=== PATIENT | female | born 1965 | race Caucasian/White ===

== ENCOUNTER → 2016-05-14 | Outpatient (CLI) | payer MEDICARE | LOC: M PT 09:49 | PROVIDERS: ATTEND Nurse Practitioner Family | DX: M40.204 Unspecified kyphosis, thoracic region (principal) | CPT/HCPCS: 97162; G8978; G8979; G8980 ==

== ENCOUNTER → 2017-06-03 | Outpatient (REF) | payer MEDICARE, MEDICAID, OTHER ==
[2017-06-03 18:58] LABS: HEMATOCRIT 44.4 % (36.0-47.0); HEMOGLOBIN 14.9 g/dl (12.0-16.0); MEAN CORPUSCULAR HEMOGLOBIN 30.9 pg (27.0-33.0); MEAN CORPUSCULAR HGB CONC 33.6 g/dl (32.0-36.5); MEAN CORPUSCULAR VOLUME 92.1 fl (80.0-96.0); PLATELET COUNT, AUTOMATED 355 10^3/uL (150-450); RED BLOOD COUNT 4.82 10^6/uL (4.00-5.40); RED CELL DISTRIBUTION WIDTH 13.2 % (11.5-14.5); WHITE BLOOD COUNT 10.3 10^3/uL (4.0-10.0)
[2017-06-03 19:20] LABS: TOTAL 25(OH) VITAMIN D 25.9 NG/ML (30.0-100.0); VITAMIN B12 LEVEL 411 PG/ML
[2017-06-03 19:25] LABS: FOLATE 9.3 NG/ML
[2017-06-03 19:40] LABS: ERYTHROCYTE SEDIMENTATION RATE 6 mm/hr (0-30)
[2017-06-03 20:12] LABS: ALBUMIN 4.3 GM/DL (3.2-5.2); ALBUMIN/GLOBULIN RATIO 1.16 (1.00-1.93); ALKALINE PHOSPHATASE 81 U/L (45-117); ALT/SGPT 14 U/L (12-78); ANION GAP 6 MEQ/L (8-16); AST/SGOT 13 U/L (7-37); BILIRUBIN,TOTAL 0.3 MG/DL (0.2-1.0); BLOOD UREA NITROGEN 16 MG/DL (7-18); C REACTIVE PROTEIN QUANTITATIV < 0.30 MG/DL (0.00-0.30); CALCIUM LEVEL 10.2 MG/DL (8.5-10.1); CARBON DIOXIDE LEVEL 30 MEQ/L (21-32); CHLORIDE LEVEL 104 MEQ/L (98-107); CREATININE FOR GFR 0.68 MG/DL (0.55-1.02); FREE T4 1.05 NG/DL (0.76-1.46); GLOMERULAR FILTRATION RATE > 60.0 (>51); GLUCOSE, FASTING 107 MG/DL (70-100); POTASSIUM SERUM 4.2 MEQ/L (3.5-5.1); SODIUM LEVEL 140 MEQ/L (136-145)
== END ==
LOC: M SFHCPLAZ 14:25
DX: G43.709 Chronic migraine without aura, not intractable, without status migrainosus (principal); M54.9 Dorsalgia, unspecified; R26.81 Unsteadiness on feet; Z79.899 Other long term (current) drug therapy
CPT/HCPCS: 82746

== ENCOUNTER 2017-09-05 20:51 | Emergency (ER) | payer MEDICARE, MEDICAID, OTHER ==
[2017-09-05] MEDS: NS 1,000 ML IV (22:15)
[2017-09-05 22:25] LABS: HEMATOCRIT 43.8 % (36.0-47.0); HEMOGLOBIN 14.7 g/dl (12.0-15.5); MEAN CORPUSCULAR HEMOGLOBIN 30.9 pg (27.0-33.0); MEAN CORPUSCULAR HGB CONC 33.6 g/dl (32.0-36.5); MEAN CORPUSCULAR VOLUME 92.2 fl (80.0-96.0); PLATELET COUNT, AUTOMATED 294 10^3/uL (150-450); RED BLOOD COUNT 4.75 10^6/uL (4.00-5.40); RED CELL DISTRIBUTION WIDTH 13.9 % (11.5-14.5); WHITE BLOOD COUNT 11.5 10^3/uL (4.0-10.0)
[2017-09-05 22:32] LABS: ANION GAP 5 MEQ/L (8-16); BLOOD UREA NITROGEN 20 MG/DL (7-18); CALCIUM LEVEL 9.3 MG/DL (8.5-10.1); CARBON DIOXIDE LEVEL 29 MEQ/L (21-32); CHLORIDE LEVEL 106 MEQ/L (98-107); CREATININE FOR GFR 0.83 MG/DL (0.55-1.30); GLOMERULAR FILTRATION RATE > 60.0 (>51); GLUCOSE, FASTING 116 MG/DL (70-100); POTASSIUM SERUM 4.1 MEQ/L (3.5-5.1); SODIUM LEVEL 140 MEQ/L (136-145)
[2017-09-05] MEDS: diphenhydrAMINE INJ 50MG/ML VIAL (J1200) IV (22:37)
[2017-09-05] MEDS: KETOROLAC 30 MG/ML VIAL (J1885) IV (22:37)
[2017-09-05] MEDS: METOCLOPRAMIDE INJ 10MG/2ML VIAL (J2765) IV (22:37)
[2017-09-05] MEDS: dexameTHASONE 20 MG/5 ML VIAL (J1100) IV (23:30)
== END 2017-09-06 00:01 | disposition home or self-care (01) ==
LOC: M ED 09-06 00:01
DX: R51 Headache (principal); Z87.891 Personal history of nicotine dependence; Z91.040 Latex allergy status; Z88.0 Allergy status to penicillin
CPT/HCPCS: J1200

== ENCOUNTER 2017-11-11 00:51 | Emergency (ER) | payer MEDICARE, MEDICAID, OTHER ==
[2017-11-11 02:02] LABS: BASO % 0.4 % (0.0-1.0); EOS # 0.2 10^3/uL (0.0-0.50); EOS % 2.2 % (0.0-3.0); HEMATOCRIT 37.6 % (36.0-47.0); HEMOGLOBIN 12.6 g/dl (12.0-15.5); IMMATURE GRANULOCYTE % 0.3 % (0-3.0); LYMPH # 2.3 10^3/uL (1.5-4.5); LYMPH % 25.5 % (24.0-44.0); MEAN CORPUSCULAR HEMOGLOBIN 31.7 pg (27.0-33.0); MEAN CORPUSCULAR HGB CONC 33.5 g/dl (32.0-36.5); MEAN CORPUSCULAR VOLUME 94.5 fl (80.0-96.0); MONO # 0.9 10^3/uL (0.0-0.8); MONO % 10.2 % (0.0-5.0); NEUTROPHILS # 5.5 10^3/uL (1.8-7.7); NEUTROPHILS % 61.4 % (36.0-66.0); PLATELET COUNT, AUTOMATED 286 10^3/uL (150-450); RED BLOOD COUNT 3.98 10^6/uL (4.00-5.40); RED CELL DISTRIBUTION WIDTH 13.2 % (11.5-14.5)
[2017-11-11 02:31] LABS: ALBUMIN 3.5 GM/DL (3.2-5.2); ALBUMIN/GLOBULIN RATIO 1.13 (1.00-1.93); ALKALINE PHOSPHATASE 68 U/L (45-117); ALT/SGPT 14 U/L (12-78); ANION GAP 7 MEQ/L (8-16); AST/SGOT 12 U/L (7-37); BILIRUBIN,DIRECT < 0.1 MG/DL (0.0-0.2); BILIRUBIN,TOTAL 0.1 MG/DL (0.2-1.0); BLOOD UREA NITROGEN 18 MG/DL (7-18); CALCIUM LEVEL 8.8 MG/DL (8.5-10.1); CARBON DIOXIDE LEVEL 29 MEQ/L (21-32); CHLORIDE LEVEL 106 MEQ/L (98-107); CPK CREATINE PHOSPHOKINASE 40 U/L (26-192); CREATININE FOR GFR 0.76 MG/DL (0.55-1.30); FREE T4 0.85 NG/DL (0.76-1.46); GLOMERULAR FILTRATION RATE > 60.0 (>51); GLUCOSE, FASTING 96 MG/DL (70-100); SODIUM LEVEL 142 MEQ/L (136-145); TOTAL PROTEIN 6.6 GM/DL (6.4-8.2); TROPONIN I < 0.02 NG/ML (< 0.10)
[2017-11-11] MEDS ORDERED: NS 1,000 ML IV (02:36)
[2017-11-11 02:37] LABS: CK-MB VALUE MASS < 1.0 NG/ML (<3.6); NT-PRO BNP 142 PG/ML (<125)
== END 2017-11-11 04:08 | disposition home or self-care (01) ==
LOC: M ED 00:51
DX: R60.0 Localized edema (principal); G35 Multiple sclerosis; M53.9 Dorsopathy, unspecified; Z88.0 Allergy status to penicillin; Z91.040 Latex allergy status
CPT/HCPCS: 71045

== ENCOUNTER → 2018-03-09 | Outpatient (CLI) | payer MEDICARE, MEDICAID | LOC: M RAD 09:28 | DX: M54.5 Low back pain (principal); M25.78 Osteophyte, vertebrae; S13.120A Subluxation of C1/C2 cervical vertebrae, initial encounter; X58.XXXA Exposure to other specified factors, initial encounter; Y92.89 Other specified places as the place of occurrence of the external cause | CPT/HCPCS: 72072 ==

== ENCOUNTER → 2018-04-06 | Outpatient (CLI) | payer MEDICARE, MEDICAID | LOC: M SLEEP 07:47 | DX: G43.009 Migraine without aura, not intractable, without status migrainosus (principal) | CPT/HCPCS: 95819 ==

== ENCOUNTER 2018-05-06 07:06 | Emergency (ER) | payer MEDICARE, MEDICAID ==
[~2018-05-06 07:06] MED LIST: CALC600T57 PO; PRED20TA PO; REGL10TA6 PO; VITA200028 PO
[2018-05-06] MEDS ORDERED: FAMO1TAB11 PO (07:18)
[2018-05-06] MEDS ORDERED: GABA-1171 PO (07:18)
[2018-05-06] MEDS ORDERED: SM I PO (07:18)
[2018-05-06] MEDS ORDERED: PROP10TA56 PO (07:18)
[2018-05-06] MEDS ORDERED: PROM12.528 PO (07:18)
[2018-05-06] MEDS ORDERED: NS 1,000 ML IV ONE ×3 (07:30→09:00)
[2018-05-06 07:37] LABS: BASO % 0.2 % (0.0-1.0); EOS % 0.2 % (0.0-3.0); HEMATOCRIT 42.3 % (36.0-47.0); HEMOGLOBIN 14.4 g/dl (12.0-15.5); LYMPH # 1.7 10^3/uL (1.5-4.5); LYMPH % 10.6 % (24.0-44.0); MEAN CORPUSCULAR VOLUME 91.2 fl (80.0-96.0); MONO % 6.3 % (0.0-5.0); NEUTROPHILS # 13.3 10^3/uL (1.8-7.7); NEUTROPHILS % 82.2 % (36.0-66.0); PLATELET COUNT, AUTOMATED 334 10^3/uL (150-450); RED BLOOD COUNT 4.64 10^6/uL (4.00-5.40); WHITE BLOOD COUNT 16.1 10^3/uL (4.0-10.0)
[2018-05-06] MEDS ORDERED: KETOROLAC 30 MG/ML VIAL (J1885) IV ONE (07:45)
[2018-05-06] MEDS ORDERED: PROMETHAZINE INJ 25 MG/ML VIAL (J2550) IV ONE (07:45)
[2018-05-06] MEDS ORDERED: LORazepam 2 MG/ML VIAL (J2060) IV STA (08:07)
[2018-05-06 09:02] LABS: ALBUMIN 3.9 GM/DL (3.2-5.2); ALT/SGPT 15 U/L (12-78); BILIRUBIN,DIRECT 0.1 MG/DL (0.0-0.2); BILIRUBIN,TOTAL 0.5 MG/DL (0.2-1.0); BLOOD UREA NITROGEN 14 MG/DL (7-18); CALCIUM LEVEL 9.3 MG/DL (8.5-10.1); CARBON DIOXIDE LEVEL 27 MEQ/L (21-32); CHLORIDE LEVEL 104 MEQ/L (98-107); CK-MB VALUE MASS < 1.0 NG/ML (<3.6); CPK CREATINE PHOSPHOKINASE 38 U/L (26-192); CREATININE FOR GFR 0.69 MG/DL (0.55-1.30); GLOMERULAR FILTRATION RATE > 60.0 (>51); GLUCOSE, FASTING 142 MG/DL (70-100); LIPASE 112 U/L (73-393); MB/CK RELATIVE INDEX 2.63 (< OR =4); POTASSIUM SERUM 3.5 MEQ/L (3.5-5.1); SODIUM LEVEL 140 MEQ/L (136-145); TOTAL PROTEIN 7.5 GM/DL (6.4-8.2); TROPONIN I < 0.02 NG/ML (< 0.10)
[2018-05-06 11:38] LABS: FREE THYROXINE INDEX 3.4 % (1.3-4.8); T UPTAKE 31 % (30-39); THYROXINE (T4) 10.9 UG/DL (4.5-12.0)
--- NOTE | 2018-05-06 13:17 | ECGEPIP ---
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
[2018-05-06 14:11] VITALS: BP 113/76
== END 2018-05-06 14:14 | disposition home or self-care (01) ==
LOC: EDBD 07:06 → M ED 07:06 → EDSEX 07:06 → M ED 14:14
DX: R11.2 Nausea with vomiting, unspecified (principal); G43.909 Migraine, unspecified, not intractable, without status migrainosus; G35 Multiple sclerosis; R53.1 Weakness; Z87.891 Personal history of nicotine dependence; Z88.0 Allergy status to penicillin; Z91.040 Latex allergy status; Z79.899 Other long term (current) drug therapy
CPT/HCPCS: 80048; 80076; 82550; 82553; 83690; 84436; 84443; 84479; 84484; 85025; 93005; 93041; 96361; 96374; 96375; 99285; J1885; J2060

== ENCOUNTER 2018-08-27 16:37 | Emergency (ER) | payer MEDICAID, MEDICARE ==
[~2018-08-27] VITALS: Ht 162.6 cm; Wt 63.6 kg
[~2018-08-27 16:37] MED LIST changes: +FAMO1TAB11 PO; +GABA-1171 PO; +IBUP200T51 PO; +PROM12.528 PO; +PROP10TA56 PO
[2018-08-27] MEDS ORDERED: PROP20TA72 PO (16:56)
[2018-08-27] MEDS ORDERED: PRIL20TA2 PO (17:37)
[2018-08-27] MEDS ORDERED: OMEPRAZOLE 20 MG CAP PO ONE (17:45)
[2018-08-27 18:12] VITALS: BP 115/71
== END 2018-08-27 19:23 | disposition home or self-care (01) ==
LOC: M ED 16:37
DX: K21.0 Gastro-esophageal reflux disease with esophagitis (principal); G43.909 Migraine, unspecified, not intractable, without status migrainosus; G35 Multiple sclerosis; Z79.899 Other long term (current) drug therapy; Z88.0 Allergy status to penicillin; Z91.040 Latex allergy status

== ENCOUNTER 2018-10-17 09:22 | Emergency (ER) | payer MEDICAID, MEDICARE ==
[~2018-10-17] VITALS: Ht 167.6 cm; Wt 65.9 kg
[~2018-10-17 09:22] MED LIST changes: +PRIL20TA2 PO; +PROP20TA72 PO
[2018-10-17 09:23] VITALS: BP 121/81
[2018-10-17] MEDS ORDERED: HM S0.65 NARES (09:33)
[2018-10-17] MEDS ORDERED: FLON27.5 NARES (10:07)
== END 2018-10-17 10:11 | disposition home or self-care (01) ==
LOC: M ED 09:22
DX: J30.2 Other seasonal allergic rhinitis (principal); Z88.0 Allergy status to penicillin; Z91.040 Latex allergy status

== ENCOUNTER 2019-01-15 01:02 | Emergency (ER) | payer MEDICARE, MEDICAID ==
[~2019-01-15] VITALS: Ht 165.1 cm; Wt 52.3 kg
[~2019-01-15 01:02] MED LIST changes: +FLON27.5 NARES; +HM S0.65 NARES; +IBUP-1729 PO; -IBUP200T51 PO
[2019-01-15] MEDS ORDERED: SUCR1SS PO (01:14)
[2019-01-15 01:58] LABS: BASO % 0.2 % (0.0-1.0); EOS % 0.2 % (0.0-3.0); HEMATOCRIT 40.5 % (36.0-47.0); HEMOGLOBIN 13.4 g/dl (12.0-15.5); LYMPH # 1.7 10^3/uL (1.5-5.0); LYMPH % 12.9 % (24.0-44.0); MEAN CORPUSCULAR HEMOGLOBIN 30.9 pg (27.0-33.0); MEAN CORPUSCULAR HGB CONC 33.1 g/dl (32.0-36.5); MEAN CORPUSCULAR VOLUME 93.5 fl (80.0-96.0); MONO % 7.1 % (0.0-5.0); NEUTROPHILS # 10.7 10^3/uL (1.5-8.5); NEUTROPHILS % 79.3 % (36.0-66.0); PLATELET COUNT, AUTOMATED 333 10^3/uL (150-450); RED BLOOD COUNT 4.33 10^6/uL (4.00-5.40); WHITE BLOOD COUNT 13.5 10^3/uL (4.0-10.0)
[2019-01-15 02:24] LABS: ALBUMIN 3.8 GM/DL (3.2-5.2); ALT/SGPT 15 U/L (12-78); BILIRUBIN,DIRECT < 0.1 MG/DL (0.0-0.2); BILIRUBIN,TOTAL 0.2 MG/DL (0.2-1.0); BLOOD UREA NITROGEN 23 MG/DL (7-18); CALCIUM LEVEL 9.8 MG/DL (8.5-10.1); CARBON DIOXIDE LEVEL 27 MEQ/L (21-32); CHLORIDE LEVEL 106 MEQ/L (98-107); CREATININE FOR GFR 0.69 MG/DL (0.55-1.30); GLOMERULAR FILTRATION RATE > 60.0 (>51); GLUCOSE, FASTING 129 MG/DL (70-100); LIPASE 131 U/L (73-393); POTASSIUM SERUM 3.9 MEQ/L (3.5-5.1); SODIUM LEVEL 141 MEQ/L (136-145); TOTAL PROTEIN 7.2 GM/DL (6.4-8.2)
[2019-01-15] MEDS ORDERED: LORazepam 2 MG TAB PO ONE (02:30)
[2019-01-15] MEDS ORDERED: NS 500 ML IV ONE (03:00)
[2019-01-15 04:33] VITALS: BP 125/75
== END 2019-01-15 04:33 | disposition home or self-care (01) ==
LOC: M ED 01:02
DX: G71.00 Muscular dystrophy, unspecified (principal); E86.0 Dehydration; K59.00 Constipation, unspecified; Z79.899 Other long term (current) drug therapy; Z88.0 Allergy status to penicillin; Z91.040 Latex allergy status

== ENCOUNTER 2019-01-22 08:08 | Emergency (ER) | payer MEDICARE, MEDICAID ==
[~2019-01-22 08:08] MED LIST changes: +SUCR1SS PO
[2019-01-22 08:09] VITALS: BP 112/64
[2019-01-22] MEDS ORDERED: IBUP-1022 (08:14)
[2019-01-22] MEDS ORDERED: BACLOFEN 10 MG TAB PO ONE (09:00)
[2019-01-22] MEDS ORDERED: BACL10TA2 PO (09:01)
== END 2019-01-22 09:10 | disposition home or self-care (01) ==
LOC: M ED 08:08
DX: G71.00 Muscular dystrophy, unspecified (principal); R25.1 Tremor, unspecified; K02.9 Dental caries, unspecified; F41.9 Anxiety disorder, unspecified; K21.9 Gastro-esophageal reflux disease without esophagitis; Z88.0 Allergy status to penicillin; Z91.040 Latex allergy status; Z79.899 Other long term (current) drug therapy

== ENCOUNTER 2019-04-19 18:27 | Emergency (ER) | payer MEDICARE, MEDICAID ==
[~2019-04-19] VITALS: Ht 162.6 cm; Wt 59.1 kg
[2019-04-19 18:27] VITALS: BP 138/80
[~2019-04-19 18:27] MED LIST changes: +BACL10TA2 PO; +IBUP-1022
[2019-04-19] MEDS ORDERED: COUGH (18:37)
== END 2019-04-19 20:40 | disposition left against medical advice (07) ==
LOC: M ED 18:27
DX: Z53.21 Procedure and treatment not carried out due to patient leaving prior to being seen by health care provider (principal)

== ENCOUNTER → 2019-10-21 | Outpatient (REF) | payer MEDICARE, MEDICAID ==
[~2019-10-21] MED LIST changes: +COUGH
[2019-10-21 17:03] LABS: APPEARANCE, URINE CLEAR (CLEAR); BACTERIA, URINE AUTO NEGATIVE (NEGATIVE); BILIRUBIN, URINE AUTO NEGATIVE (NEGATIVE); BLOOD, URINE BLOOD 1+ (NEGATIVE); COLOR, URINE STRAW (YELLOW); GLUCOSE, URINE (UA) AUTO NEGATIVE (NEGATIVE); KETONE, URINE AUTO NEGATIVE (NEGATIVE); LEUKOCYTE ESTERASE, URINE AUTO NEGATIVE (NEGATIVE); MUCUS, URINE SMALL (NEGATIVE); NITRITE, URINE AUTO NEGATIVE (NEGATIVE); PROTEIN, URINE AUTO NEGATIVE (NEGATIVE); RBC, URINE AUTO 0 /HPF (0-3); SPECIFIC GRAVITY URINE AUTO 1.006 (1.002-1.035); SQUAMOUS EPITHELIAL CELL UR AU 0 /HPF (0-6); UROBILINOGEN, URINE AUTO 0.2 mg/dL (0.0-2.0); WBC, URINE AUTO 1 /HPF (0-3)
== END ==
LOC: M LAB REF 16:31
PROVIDERS: ATTEND Physician Assistant
DX: N39.0 Urinary tract infection, site not specified (principal)

== ENCOUNTER 2020-09-11 11:42 | Emergency (ER) | payer MEDICARE, MEDICAID ==
[2020-09-11 12:22] LABS: BASO % 0.3 % (0.0-1.0); EOS % 0.2 % (0.0-3.0); HEMATOCRIT 41.4 % (36.0-47.0); HEMOGLOBIN 13.7 g/dl (12.0-15.5); LYMPH # 1.5 10^3/uL (1.5-5.0); LYMPH % 13.2 % (24.0-44.0); MEAN CORPUSCULAR HEMOGLOBIN 30.7 pg (27.0-33.0); MEAN CORPUSCULAR HGB CONC 33.1 g/dl (32.0-36.5); MEAN CORPUSCULAR VOLUME 92.8 fl (80.0-96.0); MONO # 0.9 10^3/uL (0.0-0.8); MONO % 8.2 % (2.0-8.0); NEUTROPHILS # 8.8 10^3/uL (1.5-8.5); NEUTROPHILS % 77.7 % (36.0-66.0); PLATELET COUNT, AUTOMATED 348 10^3/uL (150-450); RED BLOOD COUNT 4.46 10^6/uL (4.00-5.40); WHITE BLOOD COUNT 11.3 10^3/uL (4.0-10.0)
[2020-09-11 12:53] LABS: ALBUMIN 3.8 GM/DL (3.2-5.2); ALT/SGPT 16 U/L (12-78); BILIRUBIN,DIRECT 0.1 MG/DL (0.0-0.2); BILIRUBIN,TOTAL 0.5 MG/DL (0.2-1.0); BLOOD UREA NITROGEN 20 MG/DL (7-18); CALCIUM LEVEL 9.4 MG/DL (8.5-10.1); CARBON DIOXIDE LEVEL 28 MEQ/L (21-32); CHLORIDE LEVEL 108 MEQ/L (98-107); CREATININE FOR GFR 0.75 MG/DL (0.55-1.30); GLOMERULAR FILTRATION RATE > 60.0 (>51); GLUCOSE, FASTING 109 MG/DL (70-100); LIPASE 80 U/L (73-393); POTASSIUM SERUM 3.5 MEQ/L (3.5-5.1); SODIUM LEVEL 142 MEQ/L (136-145); TOTAL PROTEIN 7.5 GM/DL (6.4-8.2)
[2020-09-11] MEDS ORDERED: NS 500 ML IV ONE (13:00)
[2020-09-11] MEDS ORDERED: VENTAER INH (14:13)
[2020-09-11] MEDS ORDERED: PANT40TA29 PO (14:13)
[2020-09-11] MEDS ORDERED: BACL10TA2 PO ×2 (15:04→15:44)
[2020-09-11 15:15] VITALS: BP 109/71
== END 2020-09-11 16:20 | disposition home or self-care (01) ==
LOC: M ED 11:42 → EDBD 11:42 → M ED 16:20
DX: M62.838 Other muscle spasm (principal); G43.909 Migraine, unspecified, not intractable, without status migrainosus; Z87.891 Personal history of nicotine dependence; Z88.0 Allergy status to penicillin; Z91.040 Latex allergy status

== ENCOUNTER 2020-10-10 17:30 | Emergency (ER) | payer MEDICARE, MEDICAID ==
[~2020-10-10 17:30] MED LIST changes: +PANT40TA29 PO; +VENTAER INH
[2020-10-10 18:25] LABS: BASO % 0.2 % (0.0-1.0); EOS # 0.1 10^3/uL (0.0-0.5); EOS % 0.7 % (0.0-3.0); HEMATOCRIT 42.1 % (36.0-47.0); HEMOGLOBIN 13.7 g/dl (12.0-15.5); LYMPH # 1.9 10^3/uL (1.5-5.0); LYMPH % 19.9 % (24.0-44.0); MEAN CORPUSCULAR HEMOGLOBIN 30.7 pg (27.0-33.0); MEAN CORPUSCULAR HGB CONC 32.5 g/dl (32.0-36.5); MEAN CORPUSCULAR VOLUME 94.4 fl (80.0-96.0); MONO # 0.8 10^3/uL (0.0-0.8); MONO % 8.2 % (2.0-8.0); NEUTROPHILS # 6.7 10^3/uL (1.5-8.5); NEUTROPHILS % 70.8 % (36.0-66.0); PLATELET COUNT, AUTOMATED 350 10^3/uL (150-450); RED BLOOD COUNT 4.46 10^6/uL (4.00-5.40); WHITE BLOOD COUNT 9.5 10^3/uL (4.0-10.0)
[2020-10-10 18:48] LABS: ALBUMIN 3.8 GM/DL (3.2-5.2); ALT/SGPT 19 U/L (12-78); BILIRUBIN,TOTAL 0.3 MG/DL (0.2-1.0); BLOOD UREA NITROGEN 13 MG/DL (7-18); CALCIUM LEVEL 9.5 MG/DL (8.5-10.1); CARBON DIOXIDE LEVEL 29 MEQ/L (21-32); CHLORIDE LEVEL 106 MEQ/L (98-107); CREATININE FOR GFR 0.61 MG/DL (0.55-1.30); GLOMERULAR FILTRATION RATE > 60.0 (>51); GLUCOSE, FASTING 89 MG/DL (70-100); POTASSIUM SERUM 4.1 MEQ/L (3.5-5.1); SODIUM LEVEL 141 MEQ/L (136-145); TOTAL PROTEIN 7.1 GM/DL (6.4-8.2)
[2020-10-10 18:57] LABS: HEPATITIS B SURFACE ANTIBODY NEGATIVE (POSITIVE)
[2020-10-10 19:08] LABS: HEPATITIS B SURFACE ANTIGEN NEGATIVE (NEGATIVE)
[2020-10-10 19:36] LABS: HIV 1&2 SCREEN CENTAUR NEGATIVE (NEGATIVE)
[2020-10-10] MEDS ORDERED: CYCL5TAB PO (19:39)
[2020-10-10] MEDS ORDERED: EMTR1TAB16 PO (19:39)
[2020-10-10 19:51] VITALS: BP 119/74
== END 2020-10-10 20:45 | disposition home or self-care (01) ==
LOC: M ED 17:30
DX: T76.21XA Adult sexual abuse, suspected, initial encounter (principal); Y92.009 Unspecified place in unspecified non-institutional (private) residence as the place of occurrence of the external cause; Y93.9 Activity, unspecified; G71.00 Muscular dystrophy, unspecified; Z87.891 Personal history of nicotine dependence; Z79.899 Other long term (current) drug therapy; Z88.0 Allergy status to penicillin; Z91.040 Latex allergy status

== ENCOUNTER 2021-02-09 19:36 | Emergency (ER) | payer MEDICARE, MEDICAID ==
[~2021-02-09 19:36] MED LIST changes: +CYCL5TAB PO; +EMTR1TAB16 PO
[2021-02-09 23:15] VITALS: BP 123/82
[2021-02-10 00:22] LABS: GC DNA AMPLIFICATION NEGATIVE (NEGATIVE)
== END 2021-02-09 23:35 | disposition home or self-care (01) ==
LOC: M ED 19:36
DX: N89.8 Other specified noninflammatory disorders of vagina (principal); Z20.2 Contact with and (suspected) exposure to infections with a predominantly sexual mode of transmission; K21.9 Gastro-esophageal reflux disease without esophagitis; F17.200 Nicotine dependence, unspecified, uncomplicated; Z79.899 Other long term (current) drug therapy; Z88.0 Allergy status to penicillin; Z91.040 Latex allergy status

== ENCOUNTER 2021-04-20 17:13 | Emergency (ER) | payer MEDICARE, MEDICAID ==
[2021-04-20 17:13] VITALS: BP 119/59
--- OUTSIDE RECORDS SUMMARY | 2021-04-20 17:18 | CCD ---
Author Author [facility] Organization [facility] Address Unknown Phone Unavailable Care Team Providers Care Media Executive Name Role Phone Bronwyn Kenyon Unavailable PROBLEMS Type Condition ICD9-CM Code [id number] Code Onset Dates Condition S tatus W/U Status Risk SNOMED Code Notes Problem Chronic migraine w/o aura w/o status migrainosus , not intractable G43.709 Active confirmed 858923081 Problem Other diseases of stomach and duodenum K31.89 A ctive confirmed 540455788 Problem Kyphoscoliosis deformity of spine M41.9 Active confirmed 122338714 Problem 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 Active confirmed 93832673 Problem Cervical pain M54.2 Active confirmed 477347 05 Problem Breast cancer screening Z12.31 Active confirmed 102387346 Problem Multiple sclerosis G35 Active confirmed 2 1074048 Problem Vitamin D deficiency E55.9 Active confirmed 34150316 Problem Migraine without aura and without status migrain osus, not intractable G43.009 Active confirmed 817086264 Problem Insomnia due to medical condition G47.01 Active confirmed 42066083243322 Problem Spondylosis of lumbar region without myelopathy or radiculopathy M47.816 Active confirmed 41548289 Problem Cervical cancer screening Z12.4 Active confirmed 274167289 Problem Closed subluxation of cervical spine, sequela S13. 100S Active confirmed 186583935 Problem Spondylosis of cervical region without myelopath y or radiculopathy M47.812 Active confirmed 118145188 Problem Colon cancer screening Z12.11 Active confirmed 166400352 Problem Pain in thoracic spine M54.6 Active confirmed 352694423053787 Problem Low back pain M54.5 Active confirmed 396629 009 Problem Deformity of metatarsal bone of right foot M21.961 Active confirmed 344917417 Problem Chronic back pain M54.9 Active confirmed 13 5398037 Problem Anxiety F41.9 Active confirmed 91144656 Problem Unsteady gait R26.81 Active confirmed 258552 08 Problem Other chronic pain G89.29 Active confirmed 8 9836311 Problem Screening for lipid disorders Z13.220 Active confir med 775641060 Problem Mild intermittent asthma without complication J45. 20 Active confirmed 664713759 Problem Gastroesophageal reflux dise ase, unspecified whether esophagitis present K21.9 Active confirmed 281057421 Problem Muscular dystrophy G71.00 Active confirmed 7 9986577 ALLERGIES Allergen (clinical drug ingredient) Drug/Non Drug Allergy do cumented on EMR Reaction Allergy Type Onset Date Status Latex Latex Unknown Drug Allergy Active Penicillin (For Allergies Use Only) Nausea/Vomiting Drug A llergy Active Pollen Pollen Unknown Drug Allergy Active ENCOUNTERS from 1965 to 2021-03-29 Encounter Location Date Provider Diagnosis [address] [phone] [place] [address] Mar, Bronwyn Kenyon Chronic back pain M54.9 IMMUNIZATIONS Vaccine Route Administration Date Status Influenza 6mo & up Fluzone Unknown Jun 03, 2017 Other s SOCIAL HISTORY Tobacco Use: Social History Observation Description Date Details (start date - stop date) Former Smoker Sex Assigned At : Social History Observation Description Sex Assigned At Unknown Education: Question Answer Notes Level of Education: Grade School 9th grade Level of Education: Not finished High School Audit Question Answer Notes Total Score: 0 Total Score: 0 Interpretation: Alcohol Education Interpretation: Alcohol Education Language: Question Answer Notes Languages spoken: Chinese Languages spoken: Chinese Latter-Day: Question Answer Notes Latter-Day 33 None Latter-Day 03 Catholic Sexual Hx: Question Answer Notes Had sex in the last 12 months (vaginal, oral, or anal)? No Had sex in the last 12 months (vaginal, oral, or anal)? Yes LMP: menopause Have you ever had an STD? No Have you ever had an STD? No Prevention Strategies discussed: Other with Men only Use protection? No Drug and Alcohol Question Answer Notes Total Score: 0 Total Score: 0 Interpretation: No problems reported Interpretation: No problems reported Alcohol Screening: Question Answer Notes Did you have a drink containing alcohol in the past year? No Did you have a drink containing alcohol in the past year? No Points 0 Points 0 Interpretation Negative Interpretation Negative Tobacco Use: Question Answer Notes Are you a: former smoker 1/2 ppd x couple yea rs Are you a: former smoker How long has it been since you last smoked? > 10 years How long has it been since you last smoked? > 10 years REASON FOR REFERRAL No Information VITAL SIGNS No information MEDICATIONS Medication SIG (Take, Route, Frequency, Duration) Notes Start Da te End Date Status Ventolin HFA 108 (90 Base) MCG/ACT 1 puff as needed In halation every 4 hrs for 30 Days September, Active Pantoprazole Sodium 40 MG 1 tablet Orally Once a day for 90 days Active Vitamin C 1000 MG 1 tablet Orally Once a day Active Cyclobenzaprine HCl 5 MG 1 tablet at bedtime as neede d Orally Once a day for 30 day(s) September, Not-Taking DULoxetine HCl 30 MG 1 capsule Orally Once a day for 30 day(s) Jan, Active Tylenol 325 MG 1 tablet as needed Orally every 4 hrs/prn Active Baclofen 10 MG 1/2-1 tablet as needed Orally every 8 hrs for 90 days Jan, Active PROCEDURES No Information RESULTS No Results REASON FOR VISIT script MEDICAL (GENERAL) HISTORY Type Description Date Surgical History muscle biopsy Surgical History muscle bx Surgical History C section 1988 Hospitalization History surgery related Goals Section No Information Health Concerns No Information MEDICAL EQUIPMENT No Information MENTAL STATUS No Information FUNCTIONAL STATUS No Information ASSESSMENTS Encounter Date Diagnosis Assessment Notes Treatment Notes Treatm ent Clinical Notes Mar, Chronic back pain (ICD-10 - M54.9) PLAN OF TREATMENT Medication Medication Name Sig Start Date Stop Date Pantoprazole Sodium 40 MG 1 tablet Orally Once a day for 90 days DULoxetine HCl 30 MG 1 capsule Orally Once a day for 30 day(s) 1 Jan, Baclofen 10 MG 1/2-1 tablet as needed Orally every 8 hr s for 90 days Jan, Next Appt Details Provider Name:Bronwyn Kenyon, 2020-05 08:15:00 AM, [address] [facility], , [place], [address], Provider Name:Ozzy Chou, 2021-05-16 01:00:00 PM, [address], , [place], [address], Provider Name:Bronwyn Martellpayal, 05-28 10:15:00 AM, [address] [facility], , [place], [address], Insurance Providers Payer Name Payer Address Payer Phone Insured Name Patient Relati onship to Insured Coverage Start Date Coverage End Date MEDICAID [employer] [address] [facility] [id number] DOMO SLADE MEDICARE Part A and B [address] [facility] [phone] DOMO SLADE self
--- OUTSIDE RECORDS SUMMARY | 2021-04-20 17:18 | CCD ---
Author Author [facility] Organization [facility] Address Unknown Phone Unavailable Care Team Providers Care Ball Assembler Name Role Phone Moses Alberts Unavailable PROBLEMS Type Condition ICD9-CM Code QVF04-WJ Code Onset Dates Condition S tatus W/U Status Risk SNOMED Code Notes Problem Chronic migraine w/o aura w/o status migrainosus , not intractable G43.709 Active confirmed 186284016 Problem Other diseases of stomach and duodenum K31.89 A ctive confirmed 302418145 Problem Kyphoscoliosis deformity of spine M41.9 Active confirmed 310131735 Problem 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 Active confirmed 15703231 Problem Cervical pain M54.2 Active confirmed 562308 05 Problem Breast cancer screening Z12.31 Active confirmed 652793413 Problem Multiple sclerosis G35 Active confirmed 2 9978786 Problem Vitamin D deficiency E55.9 Active confirmed 38436387 Problem Migraine without aura and without status migrain osus, not intractable G43.009 Active confirmed 016084822 Problem Insomnia due to medical condition G47.01 Active confirmed 02546841783666 Problem Spondylosis of lumbar region without myelopathy or radiculopathy M47.816 Active confirmed 86213320 Problem Cervical cancer screening Z12.4 Active confirmed 351857795 Problem Closed subluxation of cervical spine, sequela S13. 100S Active confirmed 710525860 Problem Spondylosis of cervical region without myelopath y or radiculopathy M47.812 Active confirmed 277453072 Problem Colon cancer screening Z12.11 Active confirmed 979038626 Problem Pain in thoracic spine M54.6 Active confirmed 051676008746605 Problem Low back pain M54.5 Active confirmed 504909 009 Problem Deformity of metatarsal bone of right foot M21.961 Active confirmed 147831906 Problem Chronic back pain M54.9 Active confirmed 13 2403567 Problem Anxiety F41.9 Active confirmed 29655317 Problem Unsteady gait R26.81 Active confirmed 387926 08 Problem Other chronic pain G89.29 Active confirmed 8 5271639 Problem Screening for lipid disorders Z13.220 Active confir med 250095054 Problem Mild intermittent asthma without complication J45. 20 Active confirmed 151869617 Problem Gastroesophageal reflux dise ase, unspecified whether esophagitis present K21.9 Active confirmed 026686027 Problem Muscular dystrophy G71.00 Active confirmed 7 4566763 ALLERGIES Allergen (clinical drug ingredient) Drug/Non Drug Allergy do cumented on EMR Reaction Allergy Type Onset Date Status Latex Latex Unknown Drug Allergy Active Penicillin (For Allergies Use Only) Nausea/Vomiting Drug A llergy Active environmental Unknown Non Drug Allergy Activ e ENCOUNTERS from 1965 to 2021-02-20 Encounter Location Date Provider Diagnosis [address] [facility] [phone] [place] [address] 12 Feb, 2021 Moses Alberts Gastroesophageal reflux dise ase, unspecified whether esophagitis present K21.9 IMMUNIZATIONS Vaccine Route Administration Date Status Influenza [...] Education Language: Question Answer Notes Languages spoken: [place] Languages spoken: [place] Hinduism: Question Answer Notes Hinduism 33 None Hinduism 03 Voodoo Sexual Hx: Question Answer Notes Had sex in the last 12 months (vaginal, oral, or anal)? Yes Had sex in the last 12 months (vaginal, oral, or anal)? No LMP: menopause Have you ever had an [...] Notes Start Da te End Date Status Pantoprazole Sodium 40 MG 1 tablet Orally Once a day for 30 day(s) Active Tylenol 325 MG 1 tablet as needed Orally every 4 hrs/prn Active Cyclobenzaprine HCl 5 MG 1 tablet at bedtime as neede d Orally Once a day for 30 day(s) September, Not-Taking Ventolin HFA 108 (90 Base) MCG/ACT 1 puff as needed In halation every 4 hrs for 30 Days September, Active DULoxetine HCl 30 MG 1 capsule Orally Once a day for 30 day(s) Jan, Active Baclofen 10 MG 1/2-1 tablet as needed Orally every 8 hrs for 30 Days Jan, Active Vitamin C 1000 MG 1 tablet Orally Once a day Active PROCEDURES No Information RESULTS No Results REASON FOR VISIT refill MEDICAL (GENERAL) HISTORY Type Description Date Surgical History muscle biopsy Surgical History muscle bx Surgical History C section 1988 Hospitalization History surgery related Goals Section No Information Health Concerns No Information MEDICAL EQUIPMENT No Information MENTAL STATUS No Information FUNCTIONAL STATUS No Information ASSESSMENTS Encounter Date Diagnosis Assessment Notes Treatment Notes Treatm ent Clinical Notes Feb, Gastroesophageal reflux dise ase, unspecified whether esophagitis present (ICD-10 - K21.9) PLAN OF TREATMENT Medication Medication Name Sig Start Date Stop Date Pantoprazole Sodium 40 MG 1 tablet Orally Once a day for 30 day( s) DULoxetine HCl 30 MG 1 capsule Orally Once a day for 30 day(s) 1 Jan, Baclofen 10 MG 1/2-1 tablet as needed Orally every 8 hr s for 30 Days Jan, Next Appt Details Provider Name:Ozzy Effie, 2021-05-16 01:00:00 PM, [address], , [place], [address], Insurance Providers Payer Name Payer Address Payer Phone Insured Name Patient Relati onship to Insured Coverage Start Date Coverage End Date MEDICARE Part A and B [address] [facility] [phone] DOMO SLADE MEDICAID [employer] [address] [facility] [address] DOMO SLADE self
--- OUTSIDE RECORDS SUMMARY | 2021-04-20 17:18 | CCD ---
Author Author [facility] Organization [facility] Address Unknown Phone Unavailable Care Team Providers Care Assembler Body Name Role Phone Bronwyn Kenyon Unavailable PROBLEMS Type Condition ICD9-CM Code VVQ41-RE Code Onset Dates Condition S tatus W/U Status Risk SNOMED Code Notes Problem Chronic migraine w/o aura w/o status migrainosus , not intractable G43.709 Active confirmed 694603991 Problem Other diseases of stomach and duodenum K31.89 A ctive confirmed 745807991 Problem Kyphoscoliosis deformity of spine M41.9 Active confirmed 957401703 Problem 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 Active confirmed 90685162 Problem Cervical pain M54.2 Active confirmed 419888 05 Problem Breast cancer screening Z12.31 Active confirmed 291735139 Problem Multiple sclerosis G35 Active confirmed 2 0257689 Problem Vitamin D deficiency E55.9 Active confirmed 87288976 Problem Migraine without aura and without status migrain osus, not intractable G43.009 Active confirmed 041374757 Problem Insomnia due to medical condition G47.01 Active confirmed 10410597577232 Problem Spondylosis of lumbar region without myelopathy or radiculopathy M47.816 Active confirmed 86853201 Problem Cervical cancer screening Z12.4 Active confirmed 976780216 Problem Closed subluxation of cervical spine, sequela S13. 100S Active confirmed 294220465 Problem Spondylosis of cervical region without myelopath y or radiculopathy M47.812 Active confirmed 106860154 Problem Colon cancer screening Z12.11 Active confirmed 520261284 Problem Pain in thoracic spine M54.6 Active confirmed 831567940960981 Problem Low back pain M54.5 Active confirmed 096033 009 Problem Deformity of metatarsal bone of right foot M21.961 Active confirmed 813350356 Problem Chronic back pain M54.9 Active confirmed 13 5096536 Problem Anxiety F41.9 Active confirmed 95929037 Problem Unsteady gait R26.81 Active confirmed 999295 08 Problem Other chronic pain G89.29 Active confirmed 8 0943810 Problem Screening for lipid disorders Z13.220 Active confir med 720186783 Problem Mild intermittent asthma without complication J45. 20 Active confirmed 964988065 Problem Gastroesophageal reflux dise ase, unspecified whether esophagitis present K21.9 Active confirmed 417640070 Problem Muscular dystrophy G71.00 Active confirmed 7 0649314 ALLERGIES Allergen (clinical drug ingredient) Drug/Non Drug Allergy do cumented on EMR Reaction Allergy Type Onset Date Status Latex Latex Unknown Drug Allergy Active Penicillin (For Allergies Use Only) Nausea/Vomiting Drug A llergy Active Pollen Pollen Unknown Drug Allergy Active ENCOUNTERS from 1965 to 2021-03-25 Encounter Location Date Provider Diagnosis [address] [phone] [place] [address] Mar, Bronwyn Soosairaj Gastroesophageal reflux dise ase, unspecified whether esophagitis present K21.9 and Chronic back pain M54.9 IMMUNIZATIONS Vaccine Route Administration Date Status Influenza 6mo & up Fluzone Unknown Jun 03, 2017 Other s SOCIAL HISTORY Tobacco Use: Social History Observation Description Date Details (start date - stop date) Former Smoker Sex Assigned At : Social History Observation Description Sex Assigned At Unknown Education: Question Answer Notes Level of Education: Not finished High School Level of Education: Grade School 9th grade Audit Question Answer Notes Total Score: 0 Total Score: 0 Interpretation: Alcohol Education Interpretation: Alcohol Education Language: Question Answer Notes Languages spoken: Kittitian Languages spoken: Kittitian Episcopalian: Question Answer Notes Episcopalian 33 None Episcopalian 03 Protestant Sexual Hx: Question Answer Notes Had sex [...] Answer Notes Are you a: former smoker Are you a: former smoker 1/2 ppd x couple yea rs How long has it been since you [...] 4 hrs for 30 Days September, Active Baclofen 10 MG 1/2-1 tablet as needed Orally every 8 hrs for 90 days Jan, Active Vitamin C 1000 MG 1 tablet Orally Once a day Active Cyclobenzaprine HCl 5 MG 1 tablet at bedtime as neede d Orally Once a day for 30 day(s) September, Not-Taking DULoxetine HCl 30 MG 1 capsule Orally Once a day for 30 day(s) Jan, Active Tylenol 325 MG 1 tablet as needed Orally every 4 hrs/prn Active Pantoprazole Sodium 40 MG 1 tablet Orally Once a day for 90 days Active PROCEDURES No Information RESULTS No Results REASON FOR VISIT refills MEDICAL (GENERAL) HISTORY Type Description Date Surgical History muscle biopsy Surgical History muscle bx Surgical History C section 1988 Hospitalization History surgery related Goals Section No Information Health Concerns No Information MEDICAL EQUIPMENT No Information MENTAL STATUS No Information FUNCTIONAL STATUS No Information ASSESSMENTS Encounter Date Diagnosis Assessment Notes Treatment Notes Treatm ent Clinical Notes Mar, Gastroesophageal reflux dise ase, unspecified whether esophagitis present (ICD-10 - K21.9) Mar, Chronic back pain (ICD-10 - M54.9) PLAN OF TREATMENT Medication Medication Name Sig Start Date Stop Date Baclofen 10 MG 1/2-1 tablet as needed Orally every 8 hr s for 90 days Jan, DULoxetine HCl 30 MG 1 capsule Orally Once a day for 30 day(s) 1 Jan, Pantoprazole Sodium 40 MG 1 tablet Orally Once a day for 90 days Next Appt Details Provider Name:Ozzy Chou, 2021-05-16 01:00:00 PM, [address], , [place], [address], Provider Name:Bronwyn Kenyon, 2021-0 05-28 10:15:00 AM, [address] [facility], , [place], [address], Insurance Providers Payer Name Payer Address Payer Phone Insured Name Patient Relati onship to Insured Coverage Start Date Coverage End Date MEDICAID [employer] [address] [facility] [id number] DOMO SLADE self MEDICARE Part A and B [address] [facility] [address] [phone] DOMO SLADE self
--- OUTSIDE RECORDS SUMMARY | 2021-04-20 17:18 | CCD ---
Author Author Saloni Lisa Magaña Organization Unknown Address [address] [address] Phone Care Team Providers Care Advertising Copywriter Name Role Phone Archana Guallpa PCP Chief Complaint and Reason for Visit Chief Complaint Allergies, Adverse Reactions, Alerts No Data in Section Problem List Concept Problem Description Status Start Date Created Date Resolv ed Date Snomed Code F43.9 Unspecified Trauma- and Stressor-Related Disorder Active 01/22/2021 Medications No Data in Section Social History Social History Element Description Concept Effective Date Smoking Status Unknown if ever smoked [id number] Immunizations No Data in Section Vital Signs No Data in Section Procedures Date Concept Id Description Targeted Site Concept Targeted Site Concept Type 01/21/2021 31372 Extended Individual Psychotherapy - 45 min CPT Patient has no history of implantable de vices Encounters Encounter Start Date End Date Encounter Type Description Diagnosis Di agnosis Desc Location Author First Name Author Last Name Npid Taxonomy Cod e Taxonomy Desc Phone Number Location Addr1 Location Addr2 Location [facility] Location [facility] Location [facility] [id number] 01/21/2021 01/21/2021 76419 Extended Individual Psych otherapy - 45 min F43.9 Reaction to severe stress, unspecified [facility] Saloni Magaña [phone] [id number] Agricultural Education Instructor [phone] [address] [address] Plan of Treatment No Data in Section Lab Results No Data in Section Instructions No Data in Section Insurance Providers Insurance Id Policy Effective Date Policy Thru Date Company N lucinda [id number] 2020 MEDICARE [id number] 2020 MEDICAID
--- OUTSIDE RECORDS SUMMARY | 2021-04-20 17:18 | CCD ---
Author Author [facility] Organization [facility] Address Unknown Phone Unavailable Care Team Providers Care Superintendent Institution Name Role Phone Stephani Silverman Unavailable PROBLEMS Type Condition ICD9-CM Code [id number] Code Onset Dates Condition S tatus W/U Status Risk SNOMED Code Notes Problem Chronic migraine w/o aura w/o status migrainosus , not intractable G43.709 Active confirmed 671752845 Problem Other diseases of stomach and duodenum K31.89 A ctive confirmed 498717799 Problem Kyphoscoliosis deformity of spine M41.9 Active confirmed 175577959 Problem 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 Active confirmed 85013731 Problem Cervical pain M54.2 Active confirmed 380182 05 Problem Breast cancer screening Z12.31 Active confirmed 564476558 Problem Multiple sclerosis G35 Active confirmed 2 1935438 Problem Vitamin D deficiency E55.9 Active confirmed 99515321 Problem Migraine without aura and without status migrain osus, not intractable G43.009 Active confirmed 340740110 Problem Insomnia due to medical condition G47.01 Active confirmed 90057014535180 Problem Spondylosis of lumbar region without myelopathy or radiculopathy M47.816 Active confirmed 40562877 Problem Cervical cancer screening Z12.4 Active confirmed 356936579 Problem Closed subluxation of cervical spine, sequela S13. 100S Active confirmed 633801189 Problem Spondylosis of cervical region without myelopath y or radiculopathy M47.812 Active confirmed 239385098 Problem Colon cancer screening Z12.11 Active confirmed 447993272 Problem Pain in thoracic spine M54.6 Active confirmed 705046350427061 Problem Low back pain M54.5 Active confirmed 524943 009 Problem Deformity of metatarsal bone of right foot M21.961 Active confirmed 440206107 Problem Chronic back pain M54.9 Active confirmed 13 6177866 Problem Anxiety F41.9 Active confirmed 16852556 Problem Unsteady gait R26.81 Active confirmed 830664 08 Problem Other chronic pain G89.29 Active confirmed 8 6941336 Problem Screening for lipid disorders Z13.220 Active confir med 137873092 Problem Mild intermittent asthma without complication J45. 20 Active confirmed 351720837 Problem Gastroesophageal reflux dise ase, unspecified whether esophagitis present K21.9 Active confirmed 871043400 Problem Muscular dystrophy G71.00 Active confirmed 7 3373954 ALLERGIES Allergen (clinical drug ingredient) Drug/Non Drug Allergy do cumented on EMR Reaction Allergy Type Onset Date Status Latex Latex Unknown Drug Allergy Active Penicillin (For Allergies Use Only) Nausea/Vomiting Drug A llergy Active environmental Unknown Non Drug Allergy Activ e ENCOUNTERS from 1967 to 2021-01-28 Encounter Location Date Provider Diagnosis [place] [address] [facility] [phone] [place] [address] Jan, Stephani Herrera IMMUNIZATIONS Vaccine Route Administration Date Status Influenza [...] Education Language: Question Answer Notes Languages spoken: Kazakh Languages spoken: Kazakh Congregational: Question Answer Notes Congregational 33 None Congregational 03 Pentecostal Sexual Hx: Question Answer Notes Had sex [...] Information RESULTS No Results REASON FOR VISIT meds not sent MEDICAL (GENERAL) HISTORY Type Description Date Surgical History muscle biopsy Surgical History muscle bx Surgical History C section 1988 Hospitalization History surgery related Goals Section No Information Health Concerns No Information MEDICAL EQUIPMENT No Information MENTAL STATUS No Information FUNCTIONAL STATUS No Information ASSESSMENTS No Information PLAN OF TREATMENT Medication Medication Name Sig Start Date Stop Date Pantoprazole Sodium 40 MG 1 tablet Orally Once a day for 30 day( s) DULoxetine HCl 30 MG 1 capsule Orally Once a day for 30 day(s) 1 Jan, Baclofen 10 MG 1/2-1 tablet as needed Orally every 8 hr s for 30 Days Jan, Next Appt Details Provider Name:Ozzy Owenvo, 2021-05-16 01:00:00 PM, [address], , [place], [address], Insurance Providers Payer Name Payer Address Payer Phone Insured Name Patient Relati onship to Insured Coverage Start Date Coverage End Date MEDICAID [employer] [address] [facility] [address] DOMO SLADE self MEDICARE Part A and B [address] [facility] [address] DOMO SLADE
--- OUTSIDE RECORDS SUMMARY | 2021-04-20 17:18 | CCD ---
Author Author [facility] Organization [facility] Address Unknown Phone Unavailable Care Team Providers Care Hearing Specialist Name Role Phone Stephani Silverman Unavailable PROBLEMS Type Condition ICD9-CM Code [id number] Code Onset Dates Condition S tatus W/U Status Risk SNOMED Code Notes Problem Chronic migraine w/o aura w/o status migrainosus , not intractable G43.709 Active confirmed 472324539 Problem Other diseases of stomach and duodenum K31.89 A ctive confirmed 962421095 Problem Kyphoscoliosis deformity of spine M41.9 Active confirmed 491674323 Problem 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 Active confirmed 92016898 Problem Cervical pain M54.2 Active confirmed 543145 05 Problem Breast cancer screening Z12.31 Active confirmed 710714545 Problem Multiple sclerosis G35 Active confirmed 2 5615975 Problem Vitamin D deficiency E55.9 Active confirmed 32564180 Problem Migraine without aura and without status migrain osus, not intractable G43.009 Active confirmed 263633503 Problem Insomnia due to medical condition G47.01 Active confirmed 29067010660029 Problem Spondylosis of lumbar region without myelopathy or radiculopathy M47.816 Active confirmed 32010925 Problem Cervical cancer screening Z12.4 Active confirmed 801511636 Problem Closed subluxation of cervical spine, sequela S13. 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 20 Active confirmed 770794506 Problem Gastroesophageal reflux dise ase, unspecified whether esophagitis present K21.9 Active confirmed 900019137 Problem Muscular dystrophy G71.00 Active confirmed 7 8505415 ALLERGIES Allergen (clinical drug ingredient) Drug/Non Drug Allergy do cumented on EMR Reaction Allergy Type Onset Date Status Latex Latex Unknown Drug Allergy Active Penicillin (For Allergies Use Only) Nausea/Vomiting Drug A llergy Active environmental Unknown Non Drug Allergy Activ e ENCOUNTERS from 1967 to 2021-02-01 Encounter Location Date Provider Diagnosis [address] [phone] [place] [address] 16 Jan, 2021 Stephani Herrera Gastroesophageal reflux dise ase, unspecified whether esophagitis present K21.9 ; Chronic back pain M54.9 ; Anxiety F41.9 ; Vitamin D deficiency E55.9 and Migraine without aura and without status migrainosus, not intractable G43.009 IMMUNIZATIONS Vaccine Route Administration Date Status Influenza [...] Education Language: Question Answer Notes Languages spoken: Amharic Languages spoken: Amharic Anglican: Question Answer Notes Anglican 33 None Anglican 03 Cheondoism Sexual Hx: Question Answer Notes Had sex [...] REASON FOR REFERRAL No Information VITAL SIGNS Weight 135 lbs Jan, Weight-kg 61.24 kg Jan, Height 68" in Jan, BMI 20.52 kg/m2 Jan, Heart Rate 91 /min Jan, Respiratory Rate 18 /min Jan, Temperature 97.4 degrees Fahrenheit Jan, Oximetry 96 Jan, Blood pressure systolic 106 mm Hg Jan, Blood pressure diastolic 66 mm Hg Jan, MEDICATIONS Medication SIG (Take, Route, Frequency, Duration) [...] Information RESULTS No Results REASON FOR VISIT f/u and med refills MEDICAL (GENERAL) HISTORY Type Description Date Surgical History muscle biopsy Surgical History muscle bx Surgical History C section 1988 Hospitalization History surgery related Goals Section No Information Health Concerns No Information MEDICAL EQUIPMENT No Information MENTAL STATUS No Information FUNCTIONAL STATUS No Information ASSESSMENTS Encounter Date Diagnosis Assessment Notes Treatment Notes Treatm ent Clinical Notes Jan, Gastroesophageal reflux dise ase, unspecified whether esophagitis present (ICD-10 - K21.9) symptoms controlled on pantoprazole Jan, Chronic back pain (ICD-10 - M54.9) will try baclofen for her pain as she has been on it before and tolerated it well. patient has an appointment scheduled with the pain center in May, she is on their cancellation for a sooner appointment Jan, Anxiety (ICD-10 - F41.9) very likely the cause of her new shortness of breath will send Cymbalta for her to try as it may be used to treat her anxiety as well as back pain, instructions given to patient on medication use along with a discussion concerning common reactions/side effects to medication. Patient verbalized understanding and will call clinic with any further questions or concerns. will have patient follow up in 6 weeks Jan, Vitamin D deficiency (ICD-10 - E55.9) on daily vitamin D supplements Jan, Migraine without aura and wi thout status migrainosus, not intractable (ICD-10 - G43.009) chronic, controlled on OTC medications as needed Jan, Other Total time spen t with the patient on the day of the encounter: 25 minutes PLAN OF TREATMENT Medication Medication Name Sig Start Date Stop Date Pantoprazole Sodium 40 MG 1 tablet Orally Once a day for 30 day( s) DULoxetine HCl 30 MG 1 capsule Orally Once a day for 30 day(s) 1 Jan, Baclofen 10 MG 1/2-1 tablet as needed Orally every 8 hr s for 30 Days Jan, Treatment Notes Assessment Notes Clinical Notes Gastroesophageal reflux disease, unspecified whether esophag itis present symptoms controlled on pantoprazole Chronic back pain will try baclofen fo r her pain as she has been on it before and tolerated it well.patient has an appointment scheduled with the pain center in May, she is on their cancellation for a sooner appointment Anxiety very likely the caus e of her new shortness of breathwill send Cymbalta for her to try as it may be used to treat her anxiety as well as back pain, instructions given to patient on medication use along with a discussion concerning common reactions/side effects to medication. Patient verbalized understanding and will call clinic with any further questions or concerns.will have patient follow up in 6 weeks Vitamin D deficiency on daily vitamin D supplements Migraine without aura and without status migrainosus, not in tractable chronic, controlled on OTC medications as needed Next Appt Details 6 Weeks Reason: Provider Name:Ozzy Chou, 2021-05-16 01:00:00 PM, [address], , [place], [address], Insurance Providers Payer Name Payer Address Payer Phone Insured Name Patient Relati onship to Insured Coverage Start Date Coverage End Date MEDICAID [employer] [address] [facility] [id number] [phone] DOMO SLADE MEDICARE Part A and B [address] [facility] [address] [phone] DOMO SLADE self
--- OUTSIDE RECORDS SUMMARY | 2021-04-20 17:18 | CCD ---
Author Author [facility] Organization [facility] Address Unknown Phone Unavailable Care Team Providers Care Fixture Fabricator Repairer Name Role Phone Bronwyn Kenyon Unavailable PROBLEMS Type Condition ICD9-CM Code VXI62-TD Code Onset Dates Condition S tatus W/U Status Risk SNOMED Code Notes Problem Chronic migraine w/o aura w/o status migrainosus , not intractable G43.709 Active confirmed 223682441 Problem Other diseases of stomach and duodenum K31.89 A ctive confirmed 386150927 Problem Kyphoscoliosis deformity of spine M41.9 Active confirmed 345241057 Problem 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 Active confirmed 44661220 Problem Cervical pain M54.2 Active confirmed 721672 05 Problem Breast cancer screening Z12.31 Active confirmed 617882938 Problem Multiple sclerosis G35 Active confirmed 2 8520620 Problem Vitamin D deficiency E55.9 Active confirmed 60153688 Problem Migraine without aura and without status migrain osus, not intractable G43.009 Active confirmed 628174912 Problem 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 20 Active confirmed 816781998 Problem Gastroesophageal reflux dise ase, unspecified whether esophagitis present K21.9 Active confirmed 263404700 Problem Muscular dystrophy G71.00 Active confirmed 7 2902522 ALLERGIES Allergen (clinical drug ingredient) Drug/Non Drug Allergy do cumented on EMR Reaction Allergy Type Onset Date Status Latex Latex Unknown Drug Allergy Active Penicillin (For Allergies Use Only) Nausea/Vomiting Drug A llergy Active Pollen Pollen Unknown Drug Allergy Active ENCOUNTERS from 1967 to 2021-03-28 Encounter Location Date Provider Diagnosis [place] [address] [facility] [phone] [place] [address] Mar, Bronwyn Kenyon IMMUNIZATIONS Vaccine Route Administration Date Status Influenza [...] Education Language: Question Answer Notes Languages spoken: Irish Languages spoken: Irish Jehovah'S Witness: Question Answer Notes Jehovah'S Witness 33 None Jehovah'S Witness 03 Taoist Sexual Hx: Question Answer Notes Had sex [...] Information RESULTS No Results REASON FOR VISIT MD issues MEDICAL (GENERAL) HISTORY Type Description Date Surgical [...] Once a day for 30 day(s) Jan, Pantoprazole Sodium 40 MG 1 tablet Orally Once a day for 90 days Next Appt Details Provider Name:Bronwyn Kenyon, 2020-05 08:15:00 AM, [address] [facility], , [place], [address], Provider Name:Ozzy Chou, 2021-05-16 01:00:00 PM, [address] [facility] 3rd Floor, , [place], [address], Provider Name:Bronwyn Kenyon, 05-28 10:15:00 AM, [address] [facility], , [place], [address], Insurance Providers Payer Name Payer Address Payer Phone Insured Name Patient Relati onship to Insured Coverage Start Date Coverage End Date MEDICAID [employer] [address] [facility] [address] DOMO SLADE MEDICARE Part A and B [address] [facility] [phone] DOMO SLADE self
--- OUTSIDE RECORDS SUMMARY | 2021-04-20 17:18 | CCD ---
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.01 Active confirmed 44743260855711 Problem Vitamin D deficiency E55.9 Active confirmed 70629591 Problem Cervical cancer screening Z12.4 Active confirmed 700153409 Problem Migraine without aura and without status migrain osus, not intractable G43.009 Active confirmed 719101553 Problem Spondylosis of cervical region without myelopath y or radiculopathy M47.812 Active confirmed 384352946 Problem Chronic migraine w/o aura w/o status migrainosus , not intractable G43.709 Active confirmed 186944143 Problem Spondylosis of lumbar region without myelopathy or radiculopathy M47.816 Active confirmed 74493354 Problem Other diseases of stomach and duodenum K31.89 A ctive confirmed 596735985 Problem Cervical pain M54.2 Active confirmed 633661 05 Problem Colon cancer screening Z12.11 Active confirmed 952126662 Problem Pain in thoracic spine M54.6 Active confirmed 585664742890186 Problem 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 20 Active confirmed 972070545 Problem Gastroesophageal reflux dise ase, unspecified whether esophagitis present K21.9 Active confirmed 735353776 ALLERGIES Allergen (clinical drug ingredient) Drug/Non Drug Allergy do cumented on EMR Reaction Allergy Type Onset Date Status Latex Latex Unknown Drug Allergy Active Penicillin (For Allergies Use Only) Nausea/Vomiting Drug A llergy Active Pollen Pollen Unknown Drug Allergy Active ENCOUNTERS from 1967 to 2021-04-10 Encounter Location Date Provider Diagnosis [place] [address] [facility] [phone] [place] [address] Mar, Bronwyn Soosairaj Kyphoscoliosis deformity of spine M41.9 and Chronic back pain M54.9 IMMUNIZATIONS Vaccine [...] Education Language: Question Answer Notes Languages spoken: Mexican Languages spoken: Mexican Rastafari: Question Answer Notes Rastafari 33 None Rastafari 03 Muslim Sexual Hx: Question Answer Notes Had sex [...] smoked? > 10 years REASON FOR REFERRAL from 1967 to 2021-04-10 Reason Please fit for Back Brace|pl ease call Sarah Beasley (skin care technician [phone]) Diagnosis 1 Kyphoscoliosis deformity of spine (M41.9) Referral Organization [facility] [place] Referring Provider First Name Bronwyn Referring Provider Last Name Chantale Referring Provider Specialty Family Medicine Referred Provider Mary Haddad Referral Priority Routine General Notes Adrian Nicholas 04/03/2021 1 2:26:57 PM > Sent VITAL SIGNS Weight 132.4 lbs Mar, Height 68" in Mar, BMI 20.13 kg/m2 Mar, Heart Rate 99 /min Mar, Respiratory Rate 18 /min Mar, Temperature 99.2 degrees Fahrenheit Mar, Oximetry 98% Mar, Blood pressure systolic 110 mm Hg Mar, Blood pressure diastolic 70 mm Hg Mar, MEDICATIONS Medication SIG (Take, Route, Frequency, Duration) Notes Start Da te End Date Status Vitamin C 1000 MG 1 tablet Orally Once a day Active Pantoprazole Sodium 40 MG 1 tablet Orally Once a day for 90 days Active DULoxetine HCl 30 MG 1 capsule Orally Once a day for 30 day(s) Jan, Active Tylenol 325 MG 1 tablet as needed Orally every 4 hrs/prn Active Baclofen 10 MG 1/2-1 tablet as needed Orally every 8 hrs for 90 days Jan, Active Ventolin HFA 108 (90 Base) MCG/ACT 1 puff as needed In halation every 4 hrs for 30 Days September, Active PROCEDURES No Information RESULTS No Results REASON FOR VISIT back brace for MD MEDICAL (GENERAL) HISTORY Type Description Date Medical History unidentified neuromuscular c ondition - Repeate EMG in 2000, 2006, 2017 normal. Evaluated by Many neurospecialist in [facility], [place] Medical History Kyphoscoliosis deformity Surgical History muscle biopsy Surgical History muscle bx Surgical History C section 1988 Hospitalization History surgery related Goals Section No Information Health Concerns No Information MEDICAL EQUIPMENT No Information MENTAL STATUS No Information FUNCTIONAL STATUS No Information ASSESSMENTS Encounter Date Diagnosis Assessment Notes Treatment Notes Treatm ent Clinical Notes Mar, Kyphoscoliosis deformity of spine (ICD-10 - M41. 9) Referral to [facility] Orthosis will reduce pain by restricting mobility of the trunk, will support weak spinal muscles and kyphosis spine 2. The spinal orthosis will control gross movement of the trunk/spine. 3. A custom fit orthosis is necessary in order to provide an intimate fit and immobilize the spine at specific levels. Upper back pain with Dx of Kyphoscoliosis spine deformity ongoing for many yea rs progressively getting worse in the past couple of years. Reports of left flank pain from prolonged positions. skin folding roman anterior chest underneath breath. intermittent diffiuclty breathing. Had been to physical therapy, pain management, analgesics without relief Uses cane, walker, wheelchair for mobility [facility]medicine visit on 05/25/2020 Been evaluated by many neurologist and neuromuscular specialist in different institutions [facility] yet no clear diagnosis of neuromuscular disorder. Repeated EMG 2000, 2006, 2017 been normal. Mar, Chronic back pain (ICD-10 - M54.9) PLAN OF TREATMENT Treatment Notes Assessment Notes Clinical Notes Kyphoscoliosis deformity of spine Referr al to [facility] will reduce pain by restricting mobility of the trunk, will support weak spinal muscles and kyphosis spine2. The spinal orthosis will control gross movement of the trunk/spine.3. A custom fit orthosis is necessary in order to provide an intimate fit and immobilize the spine at specific levels.Upper back pain with Dx of Kyphoscoliosis spine deformity ongoing for many years progressively getting worse in the past couple of years. Reports of left flank pain from prolonged positions. skin folding roman anterior chest underneath breath. intermittent diffiuclty breathing.Had been to physical therapy, pain management, analgesics without reliefUses cane, walker, wheelchair for mobilityGoing [facility]/2020een evaluated by many neurologist and neuromuscular specialist in different institutions [facility] yet no clear diagnosis of neuromuscular disorder. Repeated EMG 2000, 2006, 2017 been normal. Referrals Referral Date Details Please fit for Back Brace|pl ease call Sarah Beasley (skin care technician [phone]), [facility] Next Appt Details Reason: Provider Name:Ozzy Chou, 2021-05-16 01:00:00 PM, [address] [facility] [address] [facility], , [place], [address], Provider Name:Bronwyn Villegasjanie, 05-28 10:15:00 AM, [address] [facility], , [place], [address], Insurance Providers Payer Name Payer Address Payer Phone Insured Name Patient Relati onship to Insured Coverage Start Date Coverage End Date MEDICARE Part A and B [address] [facility] [id number] DOMO SLADE self MEDICAID [employer] [address] [facility] [id number] DOMO SLADE self
--- OUTSIDE RECORDS SUMMARY | 2021-04-20 17:19 | CCD ---
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 Name Role Phone Farzana Chanel Unavailable Jayla Smith Unavailable Unavailable Lanny Gutiérrez MD Unavailable Unavailable Lanny Gutiérrez MD Unavailable Unavailable Lanny Gutiérrez MD Unavailable Unavailable Lanny Gutiérrez MD Unavailable Unavailable Lanny Gutiérrez MD Unavailable Unavailable Lanny Gutiérrez MD Unavailable Unavailable Lanny Gutiérrez MD Unavailable Unavailable Lanny Gutiérrez MD Unavailable Unavailable Lanny Gutiérrez MD Unavailable Unavailable Lanny Gutiérrez MD Unavailable Unavailable Lanny Gutiérrez MD Unavailable Unavailable Gutiérrez, Lanny HUSAIN Unavailable Unavailable Gutiérrez, Lanny HUSAIN Unavailable Unavailable Gutiérrez, Lanny HUSAIN Unavailable Unavailable Gutiérrez, Lanny HUSAIN Unavailable Unavailable Gutiérrez, Lanny HUSAIN Unavailable Unavailable Gutiérrez, Lanny HUSAIN Unavailable Unavailable Gutiérrez, Lanny HUSAIN Unavailable Unavailable Gutiérrez, Lanny HUSAIN Unavailable Unavailable Gutiérrez, Lanny HUSAIN Unavailable Unavailable Gutiérrez, Lanny HUSAIN Unavailable Unavailable Gutiérrez, Lanny HUSAIN Unavailable Unavailable Gutiérrez, Lanny HUSAIN Unavailable Unavailable Gutiérrez, Lanny HUSAIN Unavailable Unavailable Gutiérrez, Lanny HUSAIN Unavailable Unavailable Gutiérrez, Lanny HUSAIN Unavailable Unavailable Gutiérrez, Lanny HUSAIN Unavailable Unavailable Gutiérrez, Lanny HUSAIN Unavailable Unavailable Gutiérrez, Lanny HUSAIN Unavailable Unavailable Gutiérrez, Lanny HUSAIN Unavailable Unavailable Gutiérrez, Lanny HUSAIN Unavailable Unavailable Gutiérrez, Lanny HUSAIN Unavailable Unavailable Gutiérrez, Lanny HUSAIN Unavailable Unavailable Gutiérrez, Lanny HUSAIN Unavailable Unavailable Gutiérrez, Lanny HUSAIN Unavailable Unavailable Gutiérrez, Lanny HUSAIN Unavailable Unavailable Gutiérrez, Lanny HUSAIN Unavailable Unavailable Gutiérrez, Lanny HUSAIN Unavailable Unavailable Gutiérrez, Lanny HUSAIN Unavailable Unavailable Gutiérrez, Lanny HUSAIN Unavailable Unavailable Gutiérrez, Lanny HUSAIN Unavailable Unavailable Gutiérrez, Lanny HUSAIN Unavailable Unavailable Gutiérrez, Lanny HUSAIN Unavailable Unavailable Gutiérrez, Lanny HUSAIN Unavailable Unavailable Gutiérrez, Lanny HUSAIN Unavailable Unavailable Gutiérrez, Lanny HUSAIN Unavailable Unavailable Gutiérrez, Lanny HUSAIN Unavailable Unavailable Gutiérrez, Lanny HUSAIN Unavailable Unavailable Gutiérrez, Lanny HUSAIN Unavailable Unavailable Gutiérrez, Lanny HUSAIN Unavailable Unavailable Gutiérrez, Lanny HUSAIN Unavailable Unavailable Gutiérrez, Lanny HUSAIN Unavailable Unavailable Gutiérrez, Lanny HUSAIN Unavailable Unavailable Gutiérrez, Lanny HUSAIN Unavailable Unavailable Gutiérrez, Lanny HUSAIN Unavailable Unavailable Gutiérrez, Lanny HUSAIN Unavailable Unavailable Gutéirrez, Lanny HUSAIN Unavailable Unavailable Gutiérrez, Lanny HUSAIN Unavailable Unavailable Gutiérrez, Lanny HUSAIN Unavailable Unavailable Gutiérrez, Lanny HUSAIN Unavailable Unavailable Gutiérrez, Lanny HUSAIN Unavailable Unavailable Lanny Gutiérrez MD Unavailable Unavailable Lanny Gutiérrez MD Unavailable Unavailable Lanny Gutiérrez MD Unavailable Unavailable Lanny Gutiérrez MD Unavailable Unavailable Lanny Gutiérrez MD Unavailable Unavailable Archana Guallpa Unavailable Re-disclosure Warning The records that you are about to access may contain information from federally-assisted alcohol or drug abuse programs. If such information is present, then the following federally mandated warning applies: This information has been disclosed to you from records protected by federal confidentiality rules (42 CFR part 2). The federal rules prohibit you from making any further disclosure of this information unless further disclosure is expressly permitted by the written consent of the person to whom it pertains or as otherwise permitted by 42 CFR part 2. A general authorization for the release of medical or other information is NOT sufficient for this purpose. The Federal rules restrict any use of the information to criminally investigate or prosecute any alcohol or drug abuse patient.The records that you are about to access may contain highly sensitive health information, the redisclosure of which is protected by Article 27-F of the [facility] Public Health law. If you continue you may have access to information: Regarding HIV / AIDS; Provided by facilities licensed or operated by the [facility] Office of Mental Health; or Provided by the [facility] Office for People With Developmental Disabilities. If such information is present, then the following [facility] mandated warning applies: This information has been disclosed to you from confidential records which are protected by state law. State law prohibits you from making any further disclosure of this information without the specific written consent of the person to whom it pertains, or as otherwise permitted by law. Any unauthorized further disclosure in violation of state law may result in a fine or intermediate sentence or both. A general authorization for the release of medical or other information is NOT sufficient authorization for further disc losure. Family History Family Member Name Family Member Gender Family Member Status Date o f Status Description Data Source(s) Unknown Unknown Problem [facility] ([facility]) Encounters Encounter Providers Location Date Indications Data Source(s ) [place] [address] [address] 04/03/2021 12:00:00 AM EST eCW1 ([facility]) [place] [address] [address] 03/29/2021 12:00:00 AM EST [facility] [place] [address] [address] 03/25/2021 12:00:00 AM EST [facility]1 ([facility]) [place] [address] [address] 03/25/2021 12:00:00 AM EST [facility]CW1 ([facility]) [place] [address] [address] 02/19/2021 12:00:00 AM EDT [facility] [place] [place] [address] [address] 01/28/2021 12:00:00 AM EDT [facility]1 [facility] [place]) Office Visit, Est Pt., Level 3 PC [address] [place] [address] 01/24/2021 12:00:00 AM EDT eCW1 ([facility]) Extended Individual Psychotherapy - 45 min Attender: Maninder Guallpa [facility] 01/21/2021 10:15:00 AM EDT - 01/21/2021 10:15:00 AM EDT [facility] ([facility]) Attender: Archana Guallpa 01/21/2021 12:00:00 AM EDT [facility] ([facility]) Unknown [address], [facility] [address] 01/04/2021 12:00:00 AM EDT eCW1 ([facility]) Office Visit, Est Pt., Level 4 PC [address] [place] [address] 12/06/2020 12:00:00 AM EDT eCW1 ([facility]) Unknown [address] [facility] [address] 11/05/2020 12:00:00 AM EDT eCW1 ([facility]) Extended Individual Psychotherapy - 45 min Attender: Jayla Luis [facility] 10/10/2020 02:00:00 AM EDT - 10/10/2020 02:00:00 AM EDT [facility] ([facility]) Attender: Jayla Smith 10/10/2020 12:00:00 AM EDT [facility] ([facility]) [place] [address] [address] 10/04/2020 12:00:00 AM EDT eCW1 ([facility]) Outpatient Attender: Lanny Gutiérrez MD 09/14/2020 12:00: 00 AM [facility] Extended Individual Psychotherapy - 45 min Attender: Jayla Smith [facility] 09/12/2020 11:00:00 AM EDT - 09/12/2020 11:00:00 AM EDT [facility] ([facility]) Attender: Jayla Smith 09/12/2020 12:00:00 AM EDT [facility] ([facility]) Psychiatric Diagnostic Evaluation (Non-Medical) [facility] 01:00:00 AM EDT - 08/28/2020 01:00:00 AM EDT [facility] ([facility]) Attender: Jayla Smith 08/28/2020 12:00:00 AM EDT [facility] ([facility]) Outpatient Attender: Lanny Gutiérrez MD 08/24/2020 12:00: 00 AM [facility] Telemed Diag Eval no med Attender: Jayla Godfrey 08/07/2020 10:00:00 AM EDT - 08/07/2020 10:00:00 AM EDT [facility] ([facility]) Attender: Jayla Smith 08/07/2020 12:00:00 AM EDT [facility] ([facility]) Brief Individual Psychotherapy - 30 min [facility] 07/23/[facility] 11:30:00 AM EDT - 07/23/2020 11:30:00 AM EDT [facility] ([facility]) Attender: Farzana Chanel 07/23/2020 12:00:00 AM EDT [facility] ([facility]) Outpatient Attender: Lanny Gutiérrez MD [id number] 12:00:00 AM EST - 05/25/2020 02:58:15 PM [facility] Outpatient Attender: Lanny Gutiérrez MD 04/20/2020 12:00: 00 AM [facility] Outpatient Attender: Lanny Gutiérrez MD [id number] 12:00:00 AM EDT - 02/17/2020 02:33:43 PM T [facility] Medications Medication Brand Name Start Date Product Form Dose Route Admi nistrative Instructions Pharmacy Instructions Status Indications Reaction Description Data Source(s) Baclofen 10 MG Oral Tablet Baclofen 10 MG 01/24/2021 12:00:00 AM EDT active Baclofen 10 MG eCW1 ([facility]) Baclofen 10 MG Oral Tablet Baclofen 10 MG 01/24/2021 12:00:00 AM EDT active Baclofen 10 MG eCW1 ([facility]) duloxetine 30 MG Delayed Release Oral Capsule DULoxeti ne HCl 30 MG DULoxetine HCl 30 MG 01/24/2021 12:00:00 AM EDT 1.0 {capsule} a ctive DULoxetine HCl 30 MG eCW1 ([facility]) Baclofen 10 MG Oral Tablet Baclofen 10 MG 01/24/2021 12:00:00 AM EDT active Baclofen 10 MG eCW1 ([facility]) Baclofen 10 MG Oral Tablet Baclofen 10 MG 01/24/2021 12:00:00 AM EDT active Baclofen 10 MG eCW1 ([facility]) duloxetine 30 MG Delayed Release Oral Capsule DULoxeti ne HCl 30 MG DULoxetine HCl 30 MG 01/24/2021 12:00:00 AM EDT 1.0 {capsule} a ctive DULoxetine HCl 30 MG eCW1 ([facility]) Baclofen 10 MG Oral Tablet Baclofen 10 MG 01/24/2021 12:00:00 AM EDT active Baclofen 10 MG eCW1 ([facility]) duloxetine 30 MG Delayed Release Oral Capsule DULoxeti ne HCl 30 MG DULoxetine HCl 30 MG 01/24/2021 12:00:00 AM EDT 1.0 {capsule} a ctive DULoxetine HCl 30 MG eCW1 ([facility]) Baclofen 10 MG Oral Tablet Baclofen 10 MG 01/24/2021 12:00:00 AM EDT active Baclofen 10 MG eCW1 ([facility]) duloxetine 30 MG Delayed Release Oral Capsule DULoxeti ne HCl 30 MG DULoxetine HCl 30 MG 01/24/2021 12:00:00 AM EDT 1.0 {capsule} a ctive DULoxetine HCl 30 MG eCW1 ([facility]) duloxetine 30 MG Delayed Release Oral Capsule DULoxeti ne HCl 30 MG DULoxetine HCl 30 MG 01/24/2021 12:00:00 AM EDT 1.0 {capsule} a ctive DULoxetine HCl 30 MG eCW1 ([facility]) duloxetine 30 MG Delayed Release Oral Capsule DULoxeti ne HCl 30 MG DULoxetine HCl 30 MG 01/24/2021 12:00:00 AM EDT 1.0 {capsule} a ctive DULoxetine HCl 30 MG eCW1 ([facility]) Baclofen 10 MG Oral Tablet Baclofen 10 MG 01/24/2021 12:00:00 AM EDT active Baclofen 10 MG eCW1 ([facility]) duloxetine 30 MG Delayed Release Oral Capsule DULoxeti ne HCl 30 MG DULoxetine HCl 30 MG 01/24/2021 12:00:00 AM EDT 1.0 {capsule} a ctive DULoxetine HCl 30 MG eCW1 ([facility]) 200 ACTUAT Albuterol 0.09 MG/ACTUAT Mete red Dose Inhaler [Ventolin] Ventolin HFA 108 (90 Base) MCG/ACT Ventolin HFA 108 (90 Base) MCG/ACT 10/05/2020 12:00:00 AM EDT 1.0 {puff_as_needed} active Aki tolin HFA 108 (90 Base) MCG/ACT eCW1 ([facility]) 200 ACTUAT Albuterol 0.09 MG/ACTUAT Mete red Dose Inhaler [Ventolin] Ventolin HFA 108 (90 Base) MCG/ACT Ventolin HFA 108 (90 Base) MCG/ACT 10/05/2020 12:00:00 AM EDT 1.0 {puff_as_needed} active Aki tolin HFA 108 (90 Base) MCG/ACT eCW1 ([facility]) 200 ACTUAT Albuterol 0.09 MG/ACTUAT Mete red Dose Inhaler [Ventolin] Ventolin HFA 108 (90 Base) MCG/ACT Ventolin HFA 108 (90 Base) MCG/ACT 10/05/2020 12:00:00 AM EDT 1.0 {puff_as_needed} active Aki tolin HFA 108 (90 Base) MCG/ACT eCW1 ([facility]) 200 ACTUAT Albuterol 0.09 MG/ACTUAT Mete red Dose Inhaler [Ventolin] Ventolin HFA 108 (90 Base) MCG/ACT Ventolin HFA 108 (90 Base) MCG/ACT 10/05/2020 12:00:00 AM EDT 1.0 {puff_as_needed} active Aki tolin HFA 108 (90 Base) MCG/ACT eCW1 ([facility]) 200 ACTUAT Albuterol 0.09 MG/ACTUAT Mete red Dose Inhaler [Ventolin] Ventolin HFA 108 (90 Base) MCG/ACT Ventolin HFA 108 (90 Base) MCG/ACT 10/05/2020 12:00:00 AM EDT 1.0 {puff_as_needed} active Aki tolin HFA 108 (90 Base) MCG/ACT eCW1 ([facility]) 200 ACTUAT Albuterol 0.09 MG/ACTUAT Mete red Dose Inhaler [Ventolin] Ventolin HFA 108 (90 Base) MCG/ACT Ventolin HFA 108 (90 Base) MCG/ACT 10/05/2020 12:00:00 AM EDT 1.0 {puff_as_needed} active Aki tolin HFA 108 (90 Base) MCG/ACT eCW1 ([facility]) 200 ACTUAT Albuterol 0.09 MG/ACTUAT Mete red Dose Inhaler [Ventolin] Ventolin HFA 108 (90 Base) MCG/ACT Ventolin HFA 108 (90 Base) MCG/ACT 10/05/2020 12:00:00 AM EDT 1.0 {puff_as_needed} active Aki tolin HFA 108 (90 Base) MCG/ACT eCW1 ([facility]) 200 ACTUAT Albuterol 0.09 MG/ACTUAT Mete red Dose Inhaler [Ventolin] Ventolin HFA 108 (90 Base) MCG/ACT Ventolin HFA 108 (90 Base) MCG/ACT 10/05/2020 12:00:00 AM EDT 1.0 {puff_as_needed} active Aki tolin HFA 108 (90 Base) MCG/ACT eCW1 ([facility]) 200 ACTUAT Albuterol 0.09 MG/ACTUAT Mete red Dose Inhaler [Ventolin] Ventolin HFA 108 (90 Base) MCG/ACT Ventolin HFA 108 (90 Base) MCG/ACT 10/05/2020 12:00:00 AM EDT 1.0 {puff_as_needed} active Aki tolin HFA 108 (90 Base) MCG/ACT eCW1 ([facility]) 200 ACTUAT Albuterol 0.09 MG/ACTUAT Mete red Dose Inhaler [Ventolin] Ventolin HFA 108 (90 Base) MCG/ACT Ventolin HFA 108 (90 Base) MCG/ACT 10/05/2020 12:00:00 AM EDT 1.0 {puff_as_needed} active Aki tolin HFA 108 (90 Base) MCG/ACT eCW1 ([facility]) 200 ACTUAT Albuterol 0.09 MG/ACTUAT Mete red Dose Inhaler [Ventolin] Ventolin HFA 108 (90 Base) MCG/ACT Ventolin HFA 108 (90 Base) MCG/ACT 10/05/2020 12:00:00 AM EDT 1.0 {puff_as_needed} active Aki tolin HFA 108 (90 Base) MCG/ACT eCW1 ([facility]) Cyclobenzaprine hydrochloride 5 MG Oral Tablet Cyclobe nzaprine HCl 5 MG Cyclobenzaprine HCl 5 MG 10/04/2020 12:00:00 AM EDT 1.0 {tablet_at_bedtime_as_needed} suspended Cyclobenzaprine HCl 5 MG eCW1 ([facility]) Cyclobenzaprine hydrochloride 5 MG Oral Tablet Cyclobe nzaprine HCl 5 MG Cyclobenzaprine HCl 5 MG 10/04/2020 12:00:00 AM EDT 1.0 {tablet_at_bedtime_as_needed} suspended Cyclobenzaprine HCl 5 MG eCW1 ([facility]) Cyclobenzaprine hydrochloride 5 MG Oral Tablet Cyclobe nzaprine HCl 5 MG Cyclobenzaprine HCl 5 MG 10/04/2020 12:00:00 AM EDT 1.0 {tablet_at_bedtime_as_needed} suspended Cyclobenzaprine HCl 5 MG eCW1 ([facility]) Cyclobenzaprine hydrochloride 5 MG Oral Tablet Cyclobe nzaprine HCl 5 MG Cyclobenzaprine HCl 5 MG 10/04/2020 12:00:00 AM EDT 1.0 {tablet_at_bedtime_as_needed} suspended Cyclobenzaprine HCl 5 MG eCW1 ([facility]) Cyclobenzaprine hydrochloride 5 MG Oral Tablet Cyclobe nzaprine HCl 5 MG Cyclobenzaprine HCl 5 MG 10/04/2020 12:00:00 AM EDT 1.0 {tablet_at_bedtime_as_needed} active Cy clobenzaprine HCl 5 MG eCW1 ([facility]) Cyclobenzaprine hydrochloride 5 MG Oral Tablet Cyclobe nzaprine HCl 5 MG Cyclobenzaprine HCl 5 MG 10/04/2020 12:00:00 AM EDT 1.0 {tablet_at_bedtime_as_needed} suspended Cyclobenzaprine HCl 5 MG eCW1 ([facility]) Cyclobenzaprine hydrochloride 5 MG Oral Tablet Cyclobe nzaprine HCl 5 MG Cyclobenzaprine HCl 5 MG 10/04/2020 12:00:00 AM EDT 1.0 {tablet_at_bedtime_as_needed} suspended Cyclobenzaprine HCl 5 MG eCW1 ([facility]) Cyclobenzaprine hydrochloride 5 MG Oral Tablet Cyclobe nzaprine HCl 5 MG Cyclobenzaprine HCl 5 MG 10/04/2020 12:00:00 AM EDT 1.0 {tablet_at_bedtime_as_needed} suspended Cyclobenzaprine HCl 5 MG eCW1 ([facility]) Cyclobenzaprine hydrochloride 5 MG Oral Tablet Cyclobe nzaprine HCl 5 MG Cyclobenzaprine HCl 5 MG 10/04/2020 12:00:00 AM EDT 1.0 {tablet_at_bedtime_as_needed} suspended Cyclobenzaprine HCl 5 MG eCW1 ([facility]) Cyclobenzaprine hydrochloride 5 MG Oral Tablet Cyclobe nzaprine HCl 5 MG Cyclobenzaprine HCl 5 MG 10/04/2020 12:00:00 AM EDT 1.0 {tablet_at_bedtime_as_needed} active Cy clobenzaprine HCl 5 MG eCW1 ([facility]) 90 mcg/actuation 08/06/2020 12:00:00 AM EDT HFA aerosol inha ler 18 INHALE TWO PUFFS BY MOUTH FOUR TIMES A DAY NEEDED INHALE TWO PUFFS BY MOUTH FOUR TIMES A DAY NEEDED SOLD: 08/06/2020 [facility] 20 mg 08/06/2020 12:00:00 AM EDT tablet 5 TAKE ONE TABLET BY MOUTH EVERY DAY FOR 5 DAYS TAKE ONE TABLET BY MOUTH EVERY DAY FOR 5 DAYS SOLD: 08/06/2020 [facility] pantoprazole 40 MG Delayed Release Oral Tablet PANTOPRAZOLE SODIUM 07/09/2020 12:00:00 AM EST tablet,delayed release (DR/EC) 90 T SHAYAN ONE TABLET BY MOUTH EVERY DAY TAKE ONE TABLET BY MOUTH EVERY DAY SOLD: 07/09/2020 [facility] 250 mg 06/28/2020 12:00:00 AM EST tablet 6 TAKE TWO TABLETS BY MOUTH AT ONCE ON THE FIRST DAY THEN TAKE ONE DAILY THEREAFTER TAKE TWO TABLETS BY MOUTH AT ONCE ON THE FIRST DAY THEN TAKE ONE DAILY THEREAFTER SOLD: 06/29/2020 [facility] 4 mg 06/28/2020 12:00:00 AM EST tablets,dose pack 21 TAKE BY MOUTH DIRECTED ON PACKAGE TAKE BY MOUTH DIRECTED ON PACKAGE SOLD: 06/29/2020 [facility] pantoprazole 40 MG Delayed Release Oral Tablet PANTOPRAZOLE SODIUM 04/04/2020 12:00:00 AM EST tablet,delayed release (DR/EC) 90 T SHAYAN ONE TABLET BY MOUTH EVERY DAY TAKE ONE TABLET BY MOUTH EVERY DAY SOLD: 04/15/2020 [facility] Insurance Providers Payer name Policy type / Coverage type Policy ID Covered green party ID Covered green party's relationship to oh Policy Oh Plan Information MEDICARE A [id number] Self [id number] MEDICARE A [id number] Self [id number] MEDICARE [id number] SP [id number] Medicare S [id number] S [id number] Managed Care - Community Plan [facility] P [id number] S [id number] Medicaid S [id number] S [id number] [facility] P [id number] S [id number] [id number] SP [id number] Medicare P [id number] S [id number] MEDICAID [id number] SP [id number] MEDICAID M [id number] Self [id number] Medicaid S [id number] S [id number] [facility]-Medicaid [id number] ANS-Medicaid [id number] ANS-Medicaid [id number] [facility]-Medicare Part B [id number] [facility]-Medicaid [id number] ANSI-Medicare Part B [id number] ANSI-Medicaid [id number] ANSI-Medicare Part B [id number] ANSI-Medicaid [id number] ANSI-Medicaid [id number] ANSI-Medicare Part B [id number] ANSI-Medicaid [id number] ANSI-Medicaid [id number] ANSI-Medicare Part B [id number] ANSI-Medicaid [id number] ANSI-Medicaid [id number] ANSI-Medicare Part B [id number] ANSI-Medicaid [id number] ANSI-Medicaid [id number] ANSI-Medicaid [id number] ANSI-Medicaid [id number] ANSI-Medicare Part B [id number] ANSI-Medicare Part B [id number] ANSI-Medicaid [id number] ANSI-Medicaid [id number] ANSI-Medicaid [id number] ANSI-Medicare Part B [id number] ANSI-Medicaid [id number] ANSI-Medicaid [id number] ANSI-Medicaid [id number] ANSI-Medicare Part B [id number] ANSI-Medicaid [id number] ANSI-Medicare Part B [id number] ANSI-Medicaid [id number] ANSI-Medicaid [id number] ANSI-Medicaid [id number] ANSI-Medicare Part B [id number] MEDICARE [id number] SP [id number] MEDICAID M [id number] S [id number] MEDICARE C [id number] S [id number] [employer] [facility] [id number] SP [id number] [facility] O [id number] S [id number] [employer] UN MEDICARE -O/P [id number] 18 [id number] IAS MEDICAID [id number] SP [id number] MEDICARE PART A [id number] Medicare Wrap O [id number] S [id number] MEDICAID [id number] SP [id number] Accidental O [id number] S [id number] MEDICAID -O/P EMERGENCY ROOM [id number] 18 [id number] MEDICARE [id number] SP [id number] [place] [id number] SP [id number] MEDICAID [id number] SP [id number] MEDICAID [id number] SP [id number] Medicare S [id number] S [id number] [facility] [employer] P [id number] S [id number] Medicare Part B Medicare Primary [id number] Self [id number] [facility]-Medicaid [id number] [facility]-Medicaid [id number] [facility]-Medicare Part B [id number] [facility]-Medicaid [id number] [facility]-Medicare Part B [id number] Problems, Conditions, and Diagnoses Code Display Name Description Problem Type Effective Dates Data Source(s) F41.9 [id number] Anxiety Problem 01/24/2021 12:00:00 AM ED T eCW1 ([facility]) F43.9 Reaction to severe stress, unspecified U nspecified Trauma- and Stressor- Related Disorder Condition 01/21/2021 12:00:00 AM EDT [facility] ([facility]) M21.961 [id number] 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 Problem 12/06/2020 12:00:00 AM EDT eCW1 ([facility]) Z13.220 [id number] Screening for lipid disorders Problem 10/29/2020 12:00:00 AM EDT eCW1 ([facility]) K21.9 Gastroesophageal reflux disease Gastroes ophageal reflux disease, unspecified whether esophagitis present Problem 10/04/2020 12:00:00 AM EDT eCW1 ([facility]) J45.20 [id number] Mild intermittent asthma without complica tion Problem 10/04/2020 12:00:00 AM EDT eCW1 ([facility]) G71.00 [id number] Muscular dystrophy Problem 10/04/2020 12:00: 00 AM EDT eCW1 ([facility]) Surgeries/Procedures Procedure Description Date Indications Data Source(s) Extended Individual Psychotherapy - 45 min 01/21/2021 12:00:00 AM EDT - 01/21/2021 12:00:00 AM EDT [facility] ([facility]) Extended Individual Psychotherapy - 45 min 12:00:00 AM EDT [facility] ([facility]) Extended Individual Psychotherapy - 45 min 10/10/2020 12:00:00 AM EDT - 10/10/2020 12:00:00 AM EDT [facility] ([facility]) Extended Individual Psychotherapy - 45 min 12:00:00 AM EDT [facility] ([facility]) Extended Individual Psychotherapy - 45 min 09/12/2020 12:00:00 AM EDT - 09/12/2020 12:00:00 AM EDT [facility] ([facility]) Extended Individual Psychotherapy - 45 min 12:00:00 AM EDT [facility] ([facility]) Psychiatric Diagnostic Evaluation (Non-Medical) 08/28/2020 12:00:00 AM EDT - 08/28/2020 12:00:00 AM EDT [facility] ([facility]) Psychiatric Diagnostic Evaluation (Non-Medical) 2020 12:00:00 AM EDT [facility] ([facility]) MHC Telemed Diag Eval no med 08/07/2020 12:00:00 AM EDT - 08/07/2020 12:00:00 AM EDT [facility] ([facility]) MHC Telemed Diag Eval no med 08/07/2020 12:00:00 AM ED T [facility] ([facility]) Brief Individual Psychotherapy - 30 min 07/23/2020 12:00:00 AM EDT - 07/23/2020 12:00:00 AM EDT [facility] ([facility]) Brief Individual Psychotherapy - 30 min 07/23/2020 12: 00:00 AM EDT [facility] ([facility]) Results ID Date Data Source [id number] 05/28/2020 03:46:57 PM [facility] Hospital Name Value Range Interpretation Code Description Data Avis rce(s) Supporting Document(s) [facility] LUFQCp4aDaSZGwRx77/UWVycMENsf5YdCBrdBIx4TSgzUXSnO7XzISS0xH1pEAD7ADrOWgJqUuDpLRF1 lbm [file] 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 [file] AgICAgICAgICAgICAgICAgICAgICAgICAgICAgICAgICAgICAgICAgICAgICAgICAgICAgICAgICAgIC AgICAgICAgICAgICAgICAgICAgICAgICAgICAgICAgDQogICAgICAgICAgICAgICAgICAgICAgICAgIC AgICAgICAgICAgICAgICAgICAgICAgICAgICAgICAg ICAgICAgICAgICAgICAgICAgICAgICAgICAgICAgICAgICAgICAgICAgDQogICAgICAgICAgICAgICAg ICAgICAgICAgICAgICAgICAgICAgICAgICAgICAgICAgICAgICAgICAgICAgICAgICAgICAgICAgICAg ICAgICAgICAgICAgICAgICAgICAgICAgDQogICAgIC AgICAgICAgICAgICAgICAgICAgICAgICAgICAgICAgICAgICAgICAgICAgICAgICAgICAgICAgICAgIC AgICAgICAgICAgICAgICAgICAgICAgICAgICAgICAgICAgDQogICAgICAgICAgICAgICAgICAgICAgIC AgICAgICAgICAgICAgICAgICAgICAgICAgICAgICAg ICAgICAgICAgICAgICAgICAgICAgICAgICAgICAgICAgICAgICAgICAgICAgDQogICAgICAgICAgICAg ICAgICAgICAgICAgICAgICAgICAgICAgICAgICAgICAgICAgICAgICAgICAgICAgICAgICAgICAgICAg ICAgICAgICAgICAgICAgICAgICAgICAgICAgDQogIC AgICAgICAgICAgICAgICAgICAgICAgICAgICAgICAgICAgICAgICAgICAgICAgICAgICAgICAgICAgIC AgICAgICAgICAgICAgICAgICAgICAgICAgICAgICAgICAgICAgDQogICAgICAgICAgICAgICAgICAgIC AgICAgICAgICAgICAgICAgICAgICAgICAgICAgICAg ICAgICAgICAgICAgICAgICAgICAgICAgICAgICAgICAgICAgICAgICAgICAgICAgDQogICAgICAgICAg ICAgICAgICAgICAgICAgICAgICAgICAgICAgICAgICAgICAgICAgICAgICAgICAgICAgICAgICAgICAg ICAgICAgICAgICAgICAgICAgICAgICAgICAgICAgDQ ogICAgICAgICAgICAgICAgICAgICAgICAgICAgICAgICAgICAgICAgICAgICAgICAgICAgICAgICAgIC JxELRjTDUnGHDvVOYtVTGtEZMeLNSxBGDmZBHtZBGrLSLaLDZkRIFsSYs0T7mzDTRgXZMzTY3lEUo6Sd 8+FIfOTsIeSFY2clNjjJ3SVM3kg9TtQKfjHBBps6Vl NSh4AA0RUEUbPJxvGD5AJNmvbu8XKUBvRRTdiUSSt8blJqUyLWM1TAAhTecqXG6CXCWjK2rzgbVxJMDd QRMNLOrfROSHINsyJZYQRJ4XEyAzW5QytZ18OBORPf2+TJsdtoQlXqrCAhC9IRDzy8QbINx0KM6RHPFx Gddel1NiJxurQZMDBUapTW7XSJI8OMW9BVBaUl5QCZ QaM859izZfYZ1MXj1YRrZhUH8jcc6SBhohNOLrUosBZaj0QJvdGE3HvNWkFVkFwz3cpiLcprRLe2Wjkk QxyIAQDLZbqjYwBSKmICTzbHK9VQWQMUIgrQBfDmW4ObLwYeNjNBL4UBPzMP2uDCbwOB7BCBK4OMhlRZ IcIYWfH8hXAmZgXNNrHpKadYzlUT3ZRrLzV1LwgoCv dCAyNiAwIFINCj4+KYzigeTdYcpELnG3MNNik7WlODr3EQ9UYKCiZOziUX8NZVFzgL8qKYpuIP4LVpYb WSRqDBHSWjJmG02syIKgZYh8E5BeTeQjEGOgKcghTOOwVMubKmGnLQNhIcCjTRxvIT4+ID4+UPdaNW3H VGhjpgFiAYEnWb8SBBWwDNFbKQ0xHBHyVZXtT5A7rM xoROHUJdDpO9kedhisNE7kAFGwY856xIsqyfIrECW9JEIkJr6CUWGyCIX9MSRuwCIsUbQmWJWJNQxrQI 6LjSAxVCV7oD2aXRrqDDUaQFCaY8bGOpTkmUnsQM98uQlkjfYrbRZnNJo+Hr7ODX5qm4LrLYm9hnEnEK ekGDS6MInoKVWlRGBoYKMcFEN3CGP2RJDLMhWmIUMu MIHtVGiyPEGkVMFlgt5OLJOhPZJcYBGcTZOvJQLlVWPlYIqyQBTxUUN4AvViWWUaPAFpXI9OIsXoBCNl TUFcXNjrUZJkRXBftq5ZFSBaXLYyJEzyGAZpSYMgXCUdNTrqBNJlYCA5IUDwKYKdPNRuJK0IPlBbOAAd IQetGNefRXCtSYAnkx2HTUEwKMVoGEKtMQOpNIOhPR TdJNxtPJKuRKD6FLR3QJJgKMLsGJ0VVxNjJTPdQYrsQGTvNBElPQAnxo9WIMUkBIBvNVOtKEIxNYAsJW WgMGsuIJHmPITlMqp2ICToESBiAS0OQeDuJUUhGMI6RPSrZSZgUNVpsh4FHGKdHHPtRGE5CTSfTTVcNH NbMRilILQcRMSsNqAdHUKyNJRbCT5PUoWyINLlCRX0 MsGyBYXyXQInct8KQMCcSRSpQxE2CPTeAFWxNFNlTJyhIMLeGBGiImJgWQDtUUAeZG7UQjXrJVDnLxB8 XGQiMRRhERSloi3SODWvNYDzXFV7BFPwJNUdJYPiPEjcSTSrUEI6QXr8KJZqWNMnLS5GLzKrPXBwVkQl FVYdMOQwEXQgdm5YQUKpUXScSAZzVLJcZWFiVPDxXM xvVXEcXTZ7XUL0FEJqJMJyNP9IGgJdSKKrOaW6FwXsYVZvAEPjof1MJXOkIDNxJyP4QfBnUYEmOGOdMB cgLLHdVRY2NYW9UOKaEVWlTC4GHmCmKNVrVeh4VBTmBJPbVSSuah4VbUNbgZxenp9LAJnVKe4BrMjoZB Z2LCixKh5mmZXqAJBhSPLHOl2DjnQeYPQnAQMJXVxv HSYdRUqfIOM8ZZDuXAX3RdAmIsV1XUXbSHF6NpR1ZrTaNOFpBhL9S5L7JUT6JnG1ERntYlIoGXIsP8Ca YXQ1CSa6DyDkPJR+KQ3vQFm+Ze1Uv6ZaqtA8tiHjDCuySuxyGH4BVWJBG5EJNp== ID Date Data Source [id number] 02/26/2020 07:30:26 PM EDT [facility] Name Value Range Interpretation Code Description Data Avis rce(s) Supporting Document(s) [facility] GWLZBp7zBzIKQuPn40/MHVyyFTEnq4WbABphLXt0LXfrRPVpV7YzBBM7lP2yMLT1TFrKThQaLsVaUAB9 lbm [file] i83Jcw4R3e01Tp480e0w2xD8z3FtPKaGE5i5j48Hx7 5E0HKgLyFqk8f+UyUQCCETgn0mPlD+/MuiYH6ER8bUcSRgU4baNBBd+yVx72J7yhednHOv3jabDYdqBO DMY8FuixYRmDfGRjL6k8n3qkEUNOK125aNrA58r98s8+IzE7RNbYRBsYjdDMzIw75WgTmeJdNvAKGUyb sX9Yk3oEdXz8974mhPbba7IgL8K+thXWeFfohHDBU+ Uqwv+8FSVYG0wkhPwjm/nB8UwBxt6xQ1i5SLvJL6PmzbJrfi0cUanm+vl4mfLoODnO5fN8Rpl9h2RkVR z3sPw5eUxnoAq24sJTqj8suaaT/pdR/BUnpsuYjhWA1Tg472lMhdLOORDOL23WJShJ9iWwsV1DytO1f0 hpa6c1kq50oWXch7lGFT0pC1+9AShW1uVNx3/uH70+ 3u+3hprxqLwK5Ki6ABN4JsgXFHrgi1ilzPaGMX6lxW2f93ryNvXfRUkidcaUX6JK5vGyX1R56QkBNQDI AJ6OrPSzlAOqybomLskXz8pnjYNb7w60YICrj8thQmpUNRdCH7is5YiZajREKeKizGHllKKKsZBdegfz J3ajxNBxOQuy/p8crrM3/NGZohowRg7j53tPzz+iSf mmGt7U1P5HUYk4dycDFCSKepz+t3xoyThCfViUP0b950yEGjVHOLxi0sZm8UP1EoIPB97PfnoSNTm5Bw 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/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+MrZmexHql4vYFyFieb30xl2cbjB1fwtQqticimF0BmCDZj5ADkVntTYeSaW6 [file] IWIrU7BiVJRtWbVcES6MZh9EHsH8AKF1jHJdKz9BUkf2JJlUZkCeFE4RYUz= Procedure Social History Code Duration Value Status Description Data Source(s ) Smoking 04/03/2021 12:00:00 AM EST Former Smoker completed Former Smoker eCW1 ([facility]) Smoking 02/25/2021 12:00:00 AM EDT Former Smoker completed Former Smoker eCW1 ([facility]) Smoking 02/25/2021 12:00:00 AM EDT Former Smoker completed Former Smoker eCW1 ([facility]) Smoking 02/25/2021 12:00:00 AM EDT Former Smoker completed Former Smoker eCW1 ([facility]) Smoking 01/24/2021 12:00:00 AM EDT Former Smoker completed Former Smoker eCW1 ([facility]) Smoking 01/24/2021 12:00:00 AM EDT Former Smoker completed Former Smoker eCW1 ([facility]) Smoking 01/24/2021 12:00:00 AM EDT Former Smoker completed Former Smoker eCW1 ([facility]) Smoking 01/21/2021 12:00:00 AM EDT Unknown if ever smoked comp leted Unknown if ever smoked [facility] ([facility]) Smoking 12/06/2020 12:00:00 AM EDT Former Smoker completed Former Smoker eCW1 ([facility]) Smoking 12/06/2020 12:00:00 AM EDT Former Smoker completed Former Smoker eCW1 ([facility]) Smoking 10/10/2020 12:00:00 AM EDT Unknown if ever smoked comp leted Unknown if ever smoked [facility] ([facility]) Smoking 10/04/2020 12:00:00 AM EDT Former Smoker completed Former Smoker eCW1 ([facility]) Smoking 10/04/2020 12:00:00 AM EDT Former Smoker completed Former Smoker eCW1 ([facility]) Smoking 09/12/2020 12:00:00 AM EDT Unknown if ever smoked comp leted Unknown if ever smoked [facility] ([facility]) Smoking 08/28/2020 12:00:00 AM EDT Unknown if ever smoked comp leted Unknown if ever smoked [facility] ([facility]) Smoking 08/07/2020 12:00:00 AM EDT Unknown if ever smoked comp leted Unknown if ever smoked [facility] ([facility]) Smoking 07/23/2020 12:00:00 AM EDT Unknown if ever smoked comp leted Unknown if ever smoked [facility] ([facility]) Alcohol intake 05/25/2020 12:00:00 AM EST Lifetime non-drinker (finding) completed Lifetime non-drinker (finding) [facility] Tobacco use and exposure 05/25/2020 12:00:00 AM EST Never used co mpleted Never used [facility] Smoking 05/25/2020 12:00:00 AM EST Former smoker completed Former smoker [facility] Vital Signs ID Date Data Source UNK Name Value Range Interpretation Code Description Data Source(s) Body weight 132.4 [lb_av] 132.4 [lb_av] eCW1 ([facility]) Body height [in_i] eCW1 ([facility]) Body mass index (BMI) [Ratio] 20.13 kg/m2 20.13 kg/m2 eCW1 ([facility]) Heart rate 99 /min 99 /min eCW1 ([facility]) Respiratory rate 18 /min 18 /min eCW1 ([facility]) Body temperature 99.2 [degF] 99.2 [degF] eCW1 ( [facility]) Systolic blood pressure 110 mm[Hg] 110 mm[Hg] e CW1 ([facility]) Diastolic blood pressure 70 mm[Hg] 70 mm[Hg] eCW1 ([facility]) Body weight 135 [lb_av] 135 [lb_av] eCW1 ([facility]) Body weight 61.24 kg 61.24 kg eCW1 ([facility]) Body height [in_i] eCW1 ([facility]) Body mass index (BMI) [Ratio] 20.52 kg/m2 20.52 kg/m2 eCW1 ([facility]) Heart rate 91 /min 91 /min eCW1 ([facility]) Respiratory rate 18 /min 18 /min eCW1 ([facility]) Body temperature 97.4 [degF] 97.4 [degF] eCW1 ( [facility]) Systolic blood pressure 106 mm[Hg] 106 mm[Hg] e CW1 ([facility]) Diastolic blood pressure 66 mm[Hg] 66 mm[Hg] eCW1 ([facility]) Heart rate 90 /min 90 /min eCW1 ([facility]) Respiratory rate 18 /min 18 /min eCW1 ([facility]) Body temperature 97.2 [degF] 97.2 [degF] eCW1 ( [facility]) Systolic blood pressure 102 mm[Hg] 102 mm[Hg] e CW1 ([facility]) Diastolic blood pressure 62 mm[Hg] 62 mm[Hg] eCW1 ([facility]) Body weight 143 [lb_av] 143 [lb_av] eCW1 ([facility]) Body height [in_i] eCW1 ([facility]) Body mass index (BMI) [Ratio] 21.74 kg/m2 21.74 kg/m2 eCW1 ([facility]) Body weight 135.8 [lb_av] 135.8 [lb_av] eCW1 ([facility]) Body height [in_i] eCW1 ([facility]) Body mass index (BMI) [Ratio] 20.65 kg/m2 20.65 kg/m2 eCW1 ([facility]) Heart rate 120 /min 120 /min eCW1 ([facility]) Respiratory rate 18 /min 18 /min eCW1 ([facility]) Body temperature 98.2 [degF] 98.2 [degF] eCW1 ( [facility]) Systolic blood pressure 120 mm[Hg] 120 mm[Hg] e CW1 ([facility]) Diastolic blood pressure 82 mm[Hg] 82 mm[Hg] eCW1 ([facility]) ID Date Data Source [id number] 02/26/2020 07:30:26 PM EDT [facility] Name Value Range Interpretation Code Description Data Source(s) WEIGHT RECORDED 135 lb 135 lb [facility] Patient Treatment Plan of Care Planned Activity Planned Date Details Description Data Source (s) Baclofen 10 MG Oral Tablet 01/24/2021 12:00:00 AM EDT eCW1 ([facility]) duloxetine 30 MG Delayed Release Oral Capsule 01/24/2021 12:00:00 A M EDT eCW1 ([facility]) duloxetine 30 MG Delayed Release Oral Capsule 01/24/2021 12:00:00 A M EDT eCW1 ([facility]) Baclofen 10 MG Oral Tablet 01/24/2021 12:00:00 AM EDT eCW1 ([facility]) duloxetine 30 MG Delayed Release Oral Capsule 01/24/2021 12:00:00 A M EDT eCW1 ([facility]) Baclofen 10 MG Oral Tablet 01/24/2021 12:00:00 AM EDT eCW1 ([facility]) Baclofen 10 MG Oral Tablet 01/24/2021 12:00:00 AM EDT eCW1 ([facility]) duloxetine 30 MG Delayed Release Oral Capsule 01/24/2021 12:00:00 A M EDT eCW1 ([facility]) Baclofen 10 MG Oral Tablet 01/24/2021 12:00:00 AM EDT eCW1 ([facility]) duloxetine 30 MG Delayed Release Oral Capsule 01/24/2021 12:00:00 A M EDT eCW1 ([facility]) Baclofen 10 MG Oral Tablet 01/24/2021 12:00:00 AM EDT eCW1 ([facility]) duloxetine 30 MG Delayed Release Oral Capsule 01/24/2021 12:00:00 A M EDT eCW1 ([facility]) 200 ACTUAT Albuterol 0.09 MG/ACTUAT Metered Dose Inhal er [Ventolin] 10/05/2020 12:00:00 AM EDT eCW1 ([facility]) 200 ACTUAT Albuterol 0.09 MG/ACTUAT Metered Dose Inhal er [Ventolin] 10/05/2020 12:00:00 AM EDT eCW1 ([facility]) Cyclobenzaprine hydrochloride 5 MG Oral Tablet 10/04/2020 12:00:00 AM EDT eCW1 ([facility]) Cyclobenzaprine hydrochloride 5 MG Oral Tablet 10/04/2020 12:00:00 AM EDT eCW1 ([facility])
[2021-04-20] MEDS ORDERED: VITA500C24 PO (17:25)
--- NOTE | 2021-04-20 21:13 | REPVR ---
PROCEDURE INFORMATION: Exam: XR Chest Exam date and time: 04/20/2021 8:16 PM Age: 56 years old Clinical indication: Other: Productive cough TECHNIQUE: Imaging protocol: XR of the chest. Views: 2 views. COMPARISON: CR Chest, 1 view 11/11/2017 2:05 AM FINDINGS: Lungs: Mild pulmonary hyperinflation with thoracic kyphosis and increased AP dimension of the thorax. No focal infiltrates. Pleural spaces: Unremarkable. No pleural effusion. No pneumothorax. Heart/Mediastinum: Unremarkable. No cardiomegaly. Bones/joints: Grossly unremarkable. IMPRESSION: Suggestion of some degree of COPD. No acute process is identified and there has been little change from 11/11/2017. Electronically signed by: Ricardo Ansari On 04/20/2021 21:12:28 PM
[2021-04-20] MEDS ORDERED: TESS100C PO (21:43)
--- OUTSIDE RECORDS SUMMARY | 2021-04-20 21:59 | CCD ---
Author Author [facility] Organization [facility] Address Unknown Phone Unavailable Care Team Providers Care Food [employer] Employee Name Role Phone DaríoFarzana Unavailable Jayla Smith Unavailable Unavailable Lanny Gutiérrez [...] Unavailable Gutiérrez, Lanny HUSAIN Unavailable Unavailable Gutiérrez, aLnny HUSAIN Unavailable Unavailable Gutiérrez, Lanny MD Unavailable Unavailable Lanny Gutiérrez MD Unavailable Unavailable Lanny Gutiérrez MD Unavailable Unavailable Lanny Gutiérrez MD Unavailable Unavailable Lanny Gutiérrez MD Unavailable Unavailable Lanny Gutiérrez MD Unavailable Unavailable Brock, Lanny HUSAIN Unavailable Unavailable Archana Guallpa Unavailable Re-disclosure Warning [...] is protected by Article 27-F of the [facility] Public Health law. If you continue you may have access to information: Regarding HIV / AIDS; Provided by facilities licensed or operated by the [facility] Office of Mental Health; or Provided by the [facility] Office for People With Developmental Disabilities. If such information is present, then the following [facility] mandated warning applies: This information has [...] law may result in a fine or fpc sentence or both. A general authorization for the release of medical or other information is NOT sufficient authorization for further disc losure. Family History Family Member Name Family Member Gender Family Member Status Date o f Status Description Data Source(s) Unknown Unknown Problem [facility] ([facility]) Encounters Encounter Providers Location Date Indications Data Source(s ) Outpatient [address] [facility] [id number] 04/03/2021 12:00:00 AM EST eCW1 ([facility] [place] [address] [facility] [address] 03/29/2021 12:00:00 AM EST [facility]CW1 ([facility] [place] [address] [facility] [address] 03/25/2021 12:00:00 AM EST eCW1 ([facility] [place] [address] [facility] [address] 03/25/2021 12:00:00 AM EST eCW1 ([facility] [place] [address] [facility] [address] 02/19/2021 12:00:00 AM EDT eCW1 ([facility] Unknown [address] [facility] [place] [address] 01/28/2021 12:00:00 AM EDT eCW1 [facility] Office Visit, Est Pt., Level 3 PC [address] [place] [address] 01/24/2021 12:00:00 AM EDT eCW1 ([facility]) Extended Individual Psychotherapy - 45 min Attender: Maninder Guallpa [facility] 01/21/2021 10:15:00 AM EDT - 01/21/2021 10:15:00 AM EDT [facility] ([facility]) Attender: Archana Guallpa 01/21/2021 12:00:00 AM EDT [facility] ([facility]) Unknown [address] [facility] [place] [address] 01/04/2021 12:00:00 AM EDT eCW1 ([facility]) Office Visit, Est Pt., Level 4 PC [address] [place] [address] 12/06/2020 12:00:00 AM EDT eCW1 ([facility]) Unknown [address] [facility] [address] 11/05/2020 12:00:00 AM EDT eCW1 ([facility]) Extended Individual Psychotherapy - 45 min Attender: Jayla Luis [facility] 10/10/2020 02:00:00 AM EDT - 10/10/2020 02:00:00 AM EDT [facility] ([facility]) Attender: Jayla Smith 10/10/2020 12:00:00 AM EDT [facility] ([facility]) Outpatient [address] [facility] [address] 10/04/2020 12:00:00 AM EDT eCW1 ([facility]) Outpatient Attender: Lanny Gutiérrez MD 09/14/2020 12:00: 00 AM [facility] Extended Individual Psychotherapy - 45 min Attender: Jayla Smith [facility] 09/12/2020 11:00:00 AM EDT - 09/12/2020 11:00:00 AM EDT [facility] ([facility]) Attender: Jayla Smith 09/12/2020 12:00:00 AM EDT [facility] ([facility]) Psychiatric Diagnostic Evaluation (Non-Medical) Attender: Rosemarie ferrer Luis [facility] 08/28/2020 01:00:00 AM EDT - 08/28/2020 01:00:00 AM EDT [facility] ([facility]) Attender: Jayla Smith 08/28/2020 12:00:00 AM EDT [facility] ([facility]) Outpatient Attender: Lanny Gutiérrez MD 08/24/2020 12:00: 00 AM [facility] Telemed Diag Eval no med Attender: Jayla fonseca [facility] 08/07/2020 10:00:00 AM EDT - 08/07/2020 10:00:00 AM EDT [facility] ([facility]) Attender: Jayla Smith 08/07/2020 12:00:00 AM EDT [facility] ([facility]) Brief Individual Psychotherapy - 30 min Attender: Farzana anthony [facility] 07/23/2020 11:30:00 AM EDT - 07/23/2020 11:30:00 AM EDT [facility] ([facility]) Attender: Farzana Chanel 07/23/2020 12:00:00 AM EDT [facility] ([facility]) Outpatient Attender: Lanny Gutiérrez MD [id number] 12:00:00 AM EST - 05/25/2020 02:58:15 PM [facility] Outpatient Attender: Lanny Gutiérrez MD 04/20/2020 12:00: 00 AM [facility] Outpatient Attender: Lanny Gutiérrez MD [id number] 12:00:00 AM EDT - 02/17/2020 02:33:43 PM T [facility] al Medications Medication Brand Name Start Date Product Form Dose Route Admi nistrative Instructions Pharmacy Instructions Status Indications Reaction Description Data Source(s) Baclofen 10 MG Oral Tablet Baclofen 10 MG 01/24/2021 12:00:00 AM EDT active Baclofen 10 MG eCW1 ([facility]) Baclofen 10 MG Oral Tablet Baclofen 10 MG 01/24/2021 12:00:00 AM EDT active Baclofen 10 MG eCW1 ([facility]) duloxetine 30 MG Delayed Release Oral Capsule DULoxeti ne HCl 30 MG DULoxetine HCl 30 MG 01/24/2021 12:00:00 AM EDT 1.0 {capsule} a ctive DULoxetine HCl 30 MG eCW1 ([facility]) Baclofen 10 MG Oral Tablet Baclofen 10 MG 01/24/2021 12:00:00 AM EDT active Baclofen 10 MG eCW1 ([facility]) Baclofen 10 MG Oral Tablet Baclofen 10 MG 01/24/2021 12:00:00 AM EDT active Baclofen 10 MG eCW1 ([facility]) duloxetine 30 MG Delayed Release Oral Capsule DULoxeti ne HCl 30 MG DULoxetine HCl 30 MG 01/24/2021 12:00:00 AM EDT 1.0 {capsule} a ctive DULoxetine HCl 30 MG eCW1 ([facility]) Baclofen 10 MG Oral Tablet Baclofen 10 MG 01/24/2021 12:00:00 AM EDT active Baclofen 10 MG eCW1 ([facility]) duloxetine 30 MG Delayed Release Oral Capsule DULoxeti ne HCl 30 MG DULoxetine HCl 30 MG 01/24/2021 12:00:00 AM EDT 1.0 {capsule} a ctive DULoxetine HCl 30 MG eCW1 ([facility]) Baclofen 10 MG Oral Tablet Baclofen 10 MG 01/24/2021 12:00:00 AM EDT active Baclofen 10 MG eCW1 ([facility]) duloxetine 30 MG Delayed Release Oral Capsule DULoxeti ne HCl 30 MG DULoxetine HCl 30 MG 01/24/2021 12:00:00 AM EDT 1.0 {capsule} a ctive DULoxetine HCl 30 MG eCW1 ([facility]) duloxetine 30 MG Delayed Release Oral Capsule DULoxeti ne HCl 30 MG DULoxetine HCl 30 MG 01/24/2021 12:00:00 AM EDT 1.0 {capsule} a ctive DULoxetine HCl 30 MG eCW1 ([facility]) duloxetine 30 MG Delayed Release Oral Capsule DULoxeti ne HCl 30 MG DULoxetine HCl 30 MG 01/24/2021 12:00:00 AM EDT 1.0 {capsule} a ctive DULoxetine HCl 30 MG eCW1 ([facility]) Baclofen 10 MG Oral Tablet Baclofen 10 MG 01/24/2021 12:00:00 AM EDT active Baclofen 10 MG eCW1 ([facility]) duloxetine 30 MG Delayed Release Oral Capsule DULoxeti ne HCl 30 MG DULoxetine HCl 30 MG 01/24/2021 12:00:00 AM EDT 1.0 {capsule} a ctive DULoxetine HCl 30 MG eCW1 ([facility]) 200 ACTUAT Albuterol 0.09 MG/ACTUAT Mete red Dose Inhaler [Ventolin] Ventolin HFA 108 (90 Base) MCG/ACT Ventolin HFA 108 (90 Base) MCG/ACT 10/05/2020 12:00:00 AM EDT 1.0 {puff_as_needed} active Aki tolin HFA 108 (90 Base) MCG/ACT eCW1 ([facility]) 200 ACTUAT Albuterol 0.09 MG/ACTUAT Mete red Dose Inhaler [Ventolin] Ventolin HFA 108 (90 Base) MCG/ACT Ventolin HFA 108 (90 Base) MCG/ACT 10/05/2020 12:00:00 AM EDT 1.0 {puff_as_needed} active Aki tolin HFA 108 (90 Base) MCG/ACT eCW1 ([facility]) 200 ACTUAT Albuterol 0.09 MG/ACTUAT Mete red Dose Inhaler [Ventolin] Ventolin HFA 108 (90 Base) MCG/ACT Ventolin HFA 108 (90 Base) MCG/ACT 10/05/2020 12:00:00 AM EDT 1.0 {puff_as_needed} active Aki tolin HFA 108 (90 Base) MCG/ACT eCW1 ([facility]) 200 ACTUAT Albuterol 0.09 MG/ACTUAT Mete red Dose Inhaler [Ventolin] Ventolin HFA 108 (90 Base) MCG/ACT Ventolin HFA 108 (90 Base) MCG/ACT 10/05/2020 12:00:00 AM EDT 1.0 {puff_as_needed} active Aki tolin HFA 108 (90 Base) MCG/ACT eCW1 ([facility]) 200 ACTUAT Albuterol 0.09 MG/ACTUAT Mete red Dose Inhaler [Ventolin] Ventolin HFA 108 (90 Base) MCG/ACT Ventolin HFA 108 (90 Base) MCG/ACT 10/05/2020 12:00:00 AM EDT 1.0 {puff_as_needed} active Aki tolin HFA 108 (90 Base) MCG/ACT eCW1 ([facility]) 200 ACTUAT Albuterol 0.09 MG/ACTUAT Mete red Dose Inhaler [Ventolin] Ventolin HFA 108 (90 Base) MCG/ACT Ventolin HFA 108 (90 Base) MCG/ACT 10/05/2020 12:00:00 AM EDT 1.0 {puff_as_needed} active Aki tolin HFA 108 (90 Base) MCG/ACT eCW1 ([facility]) 200 ACTUAT Albuterol 0.09 MG/ACTUAT Mete red Dose Inhaler [Ventolin] Ventolin HFA 108 (90 Base) MCG/ACT Ventolin HFA 108 (90 Base) MCG/ACT 10/05/2020 12:00:00 AM EDT 1.0 {puff_as_needed} active Aki tolin HFA 108 (90 Base) MCG/ACT eCW1 ([facility]) 200 ACTUAT Albuterol 0.09 MG/ACTUAT Mete red Dose Inhaler [Ventolin] Ventolin HFA 108 (90 Base) MCG/ACT Ventolin HFA 108 (90 Base) MCG/ACT 10/05/2020 12:00:00 AM EDT 1.0 {puff_as_needed} active Aki tolin HFA 108 (90 Base) MCG/ACT eCW1 ([facility]) 200 ACTUAT Albuterol 0.09 MG/ACTUAT Mete red Dose Inhaler [Ventolin] Ventolin HFA 108 (90 Base) MCG/ACT Ventolin HFA 108 (90 Base) MCG/ACT 10/05/2020 12:00:00 AM EDT 1.0 {puff_as_needed} active Aki tolin HFA 108 (90 Base) MCG/ACT eCW1 ([facility]) 200 ACTUAT Albuterol 0.09 MG/ACTUAT Mete red Dose Inhaler [Ventolin] Ventolin HFA 108 (90 Base) MCG/ACT Ventolin HFA 108 (90 Base) MCG/ACT 10/05/2020 12:00:00 AM EDT 1.0 {puff_as_needed} active Aki tolin HFA 108 (90 Base) MCG/ACT eCW1 ([facility]) 200 ACTUAT Albuterol 0.09 MG/ACTUAT Mete red Dose Inhaler [Ventolin] Ventolin HFA 108 (90 Base) MCG/ACT Ventolin HFA 108 (90 Base) MCG/ACT 10/05/2020 12:00:00 AM EDT 1.0 {puff_as_needed} active Aki tolin HFA 108 (90 Base) MCG/ACT eCW1 ([facility]) Cyclobenzaprine hydrochloride 5 MG Oral Tablet Cyclobe nzaprine HCl 5 MG Cyclobenzaprine HCl 5 MG 10/04/2020 12:00:00 AM EDT 1.0 {tablet_at_bedtime_as_needed} suspended Cyclobenzaprine HCl 5 MG eCW1 ([facility]) Cyclobenzaprine hydrochloride 5 MG Oral Tablet Cyclobe nzaprine HCl 5 MG Cyclobenzaprine HCl 5 MG 10/04/2020 12:00:00 AM EDT 1.0 {tablet_at_bedtime_as_needed} suspended Cyclobenzaprine HCl 5 MG eCW1 ([facility]) Cyclobenzaprine hydrochloride 5 MG Oral Tablet Cyclobe nzaprine HCl 5 MG Cyclobenzaprine HCl 5 MG 10/04/2020 12:00:00 AM EDT 1.0 {tablet_at_bedtime_as_needed} suspended Cyclobenzaprine HCl 5 MG eCW1 ([facility]) Cyclobenzaprine hydrochloride 5 MG Oral Tablet Cyclobe nzaprine HCl 5 MG Cyclobenzaprine HCl 5 MG 10/04/2020 12:00:00 AM EDT 1.0 {tablet_at_bedtime_as_needed} suspended Cyclobenzaprine HCl 5 MG eCW1 ([facility]) Cyclobenzaprine hydrochloride 5 MG Oral Tablet Cyclobe nzaprine HCl 5 MG Cyclobenzaprine HCl 5 MG 10/04/2020 12:00:00 AM EDT 1.0 {tablet_at_bedtime_as_needed} active Cy clobenzaprine HCl 5 MG eCW1 ([facility]) Cyclobenzaprine hydrochloride 5 MG Oral Tablet Cyclobe nzaprine HCl 5 MG Cyclobenzaprine HCl 5 MG 10/04/2020 12:00:00 AM EDT 1.0 {tablet_at_bedtime_as_needed} suspended Cyclobenzaprine HCl 5 MG eCW1 ([facility]) Cyclobenzaprine hydrochloride 5 MG Oral Tablet Cyclobe nzaprine HCl 5 MG Cyclobenzaprine HCl 5 MG 10/04/2020 12:00:00 AM EDT 1.0 {tablet_at_bedtime_as_needed} suspended Cyclobenzaprine HCl 5 MG eCW1 ([facility]) Cyclobenzaprine hydrochloride 5 MG Oral Tablet Cyclobe nzaprine HCl 5 MG Cyclobenzaprine HCl 5 MG 10/04/2020 12:00:00 AM EDT 1.0 {tablet_at_bedtime_as_needed} suspended Cyclobenzaprine HCl 5 MG eCW1 ([facility]) Cyclobenzaprine hydrochloride 5 MG Oral Tablet Cyclobe nzaprine HCl 5 MG Cyclobenzaprine HCl 5 MG 10/04/2020 12:00:00 AM EDT 1.0 {tablet_at_bedtime_as_needed} suspended Cyclobenzaprine HCl 5 MG eCW1 ([facility]) Cyclobenzaprine hydrochloride 5 MG Oral Tablet Cyclobe nzaprine HCl 5 MG Cyclobenzaprine HCl 5 MG 10/04/2020 12:00:00 AM EDT 1.0 {tablet_at_bedtime_as_needed} active Cy clobenzaprine HCl 5 MG eCW1 ([facility]) 90 mcg/actuation 08/06/2020 12:00:00 AM EDT HFA aerosol inha ler 18 INHALE TWO PUFFS BY MOUTH FOUR TIMES A DAY NEEDED INHALE TWO PUFFS BY MOUTH FOUR TIMES A DAY NEEDED SOLD: 08/06/2020 [facility] 20 mg 08/06/2020 12:00:00 AM EDT [...] type / Coverage type Policy ID Covered democrat ID Covered democrat's relationship to oh Policy Oh Plan Information MEDICARE A [id number] Self [id number] MEDICARE A [id number] Self [id number] MEDICARE [id number] SP [id number] Medicare S [id number] S [id number] Managed Care - Community Plan [facility] P [id number] S [id number] Medicaid S [id number] S [id number] [facility] P [id number] S [id number] [facility] [id number] SP [id number] Medicare P [id number] S [id number] 7C2 MEDICAID [id number] SP [id number] MEDICAID M [id number] Self [id number] Medicaid S [id number] S [id number] ANS-Medicaid [id number] ANS-Medicaid [id number] [facility]-Medicaid [id number] [facility]-Medicare Part B [id number] [facility]-Medicaid [id number] ANSI-Medicare Part B [id number] ANSI-Medicaid [id number] ANSI-Medicare Part B [id number] ANSI-Medicaid [id number] ANSI-Medicaid [id number] ANSI-Medicare Part B [id number] ANSI-Medicaid [id number] ANSI-Medicaid [id number] ANSI-Medicare Part B [id number] ANSI-Medicaid [id number] ANSI-Medicaid [id number] ANSI-Medicare Part B [id number] ANSI-Medicaid [id number] ANSI-Medicaid [id number] ANSI-Medicaid [id number] ANSI-Medicaid [id number] ANSI-Medicare Part B [id number] ANSI-Medicare Part B [id number] ANSI-Medicaid [id number] ANSI-Medicaid [id number] ANSI-Medicaid [id number] ANSI-Medicare Part B [id number] ANSI-Medicaid [id number] ANSI-Medicaid [id number] ANSI-Medicaid [id number] ANSI-Medicare Part B [id number] ANSI-Medicaid [id number] ANSI-Medicare Part B [id number] ANSI-Medicaid [id number] ANSI-Medicaid [id number] ANSI-Medicaid [id number] ANSI-Medicare Part B [id number] MEDICARE [id number] SP [id number] MEDICAID M [id number] S [id number] MEDICARE C [id number] S [id number] [employer] [facility] [id number] SP [id number] [facility] O [id number] S [id number] [employer] MEDICARE -O/P [id number] 18 [id number] [place] [id number] SP [id number] MEDICARE PART A [id number] 18 [id number] Medicare Wrap O [id number] S [id number] MEDICAID [id number] SP [id number] [facility] O [id number] S [id number] MEDICAID -O/P EMERGENCY ROOM [id number] MEDICARE [id number] SP [id number] [place]EDNY [id number] SP [id number] MEDICAID [id number] SP [id number] MEDICAID [id number] SP [id number] Medicare S [id number] S [id number] [facility] [employer] P [id number] S [id number] Medicare Part B Medicare Primary [id number] Self [id number] [facility]-Medicaid [id number] ANSI-Medicaid [id number] ANS-Medicare Part B [id number] ANSI-Medicaid [id number] [facility]-Medicare Part B [id number] Problems, Conditions, and Diagnoses Code Display Name Description Problem Type Effective Dates Data Source(s) F41.9 [id number] Anxiety Problem 01/24/2021 12:00:00 AM ED T eCW1 ([facility]) F43.9 Reaction to severe stress, unspecified U nspecified Trauma- and Stressor- Related Disorder Condition 01/21/2021 12:00:00 AM EDT [facility] ([facility]) M21.961 [id number] 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 Problem 12/06/2020 12:00:00 AM EDT eCW1 ([facility]) Z13.220 [id number] Screening for lipid disorders Problem 10/29/2020 12:00:00 AM EDT eCW1 ([facility]) K21.9 Gastroesophageal reflux disease Gastroes ophageal reflux disease, unspecified whether esophagitis present Problem 10/04/2020 12:00:00 AM EDT eCW1 ([facility]) J45.20 [id number] Mild intermittent asthma without complica tion Problem 10/04/2020 12:00:00 AM EDT eCW1 ([facility]) G71.00 [id number] Muscular dystrophy Problem 10/04/2020 12:00: 00 AM EDT eCW1 ([facility]) Surgeries/Procedures Procedure Description Date Indications Data Source(s) Extended Individual Psychotherapy - 45 min 01/21/2021 12:00:00 AM EDT - 01/21/2021 12:00:00 AM EDT [facility] ([facility]) Extended Individual Psychotherapy - 45 min 09/13/202 1 12:00:00 AM EDT [facility] ([facility]) Extended Individual Psychotherapy - 45 min 10/10/2020 12:00:00 AM EDT - 10/10/2020 12:00:00 AM EDT [facility] ([facility]) Extended Individual Psychotherapy - 45 min 12:00:00 AM EDT [facility] ([facility]) Extended Individual Psychotherapy - 45 min 09/12/2020 12:00:00 AM EDT - 09/12/2020 12:00:00 AM EDT [facility] ([facility]) Extended Individual Psychotherapy - 45 min 12:00:00 AM EDT [facility] ([facility]) Psychiatric Diagnostic Evaluation (Non-Medical) 08/28/2020 12:00:00 AM EDT - 08/28/2020 12:00:00 AM EDT [facility] ([facility]) Psychiatric Diagnostic Evaluation (Non-Medical) 2020 12:00:00 AM EDT [facility] ([facility]) MHC Telemed Diag Eval no med 08/07/2020 12:00:00 AM EDT - 08/07/2020 12:00:00 AM EDT [facility] ([facility]) MHC Telemed Diag Eval no med 08/07/2020 12:00:00 AM ED T [facility] ([facility]) Brief Individual Psychotherapy - 30 min 07/23/2020 12:00:00 AM EDT - 07/23/2020 12:00:00 AM EDT [facility] ([facility]) Brief Individual Psychotherapy - 30 min 07/23/2020 12: 00:00 AM EDT [facility] ([facility]) Results ID Date Data Source [id number] 05/28/2020 03:46:57 PM [facility] Hospital Name Value Range Interpretation Code Description Data Aivs rce(s) Supporting Document(s) Progress Note [facility] RKWRMg8bGiIBGsRh69/IJWifMTKdo1LnXAkkDYc9QCouSHBnP4SpIFP8oO0mATJ4DWxHGzPmGiPmAZP4 lbm [file] 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 [file] LTI4BRo3UaNrREJ+QC9qRIj+Io4Ty7QhviI1kmPhFTcdUcyxYD4IKYUVV9BQKs== ID Date Data Source [id number] 02/26/2020 07:30:26 PM EDT [facility] Name Value Range Interpretation Code Description Data Avis rce(s) Supporting Document(s) Progress Note [facility] KXZCAb1eLpGUCuNf80/NSLjzFHGir5DdTHhdZQz7CPbpZYVxI9YqAYX5iD4qOWE1FNvUBnZbWzVfZXM8 lbm [file] d78Mji5K9i22Aw270f3d2kQ9e5JgKEwXF3e9l86Te5 2Z1BJdMtMdu2c+FxJNEYVApc7kDdA+/TnrOP7PW2iAlZGaB1itTDQe+kNv01Z5amuigAFd1risSNdnZP CIM7TsoaKImHpVZzX2f8m4ijNZFQS958oFfT80l91j3+TsU8YSbAHPsYtvACrEq45MoOfqHvZyBRCPuo wK5Nc5jQuJk0981qqZanq7DqX8X+thXWeFfohHDBU+ Uqwv+6GOZWQ4jyyRapv/nP0LjFls5zI2g3DCqDC1ZzjtBgov2tWaqe+qq9chUbHYpV0cW3Imw3n9PiCK n0qMy5tBxmaLq96mKRds9tmpzS/pdR/DCemetMeoJJ1Qz435fBnjNNRXUTK20HSCeW2bWpnR1AajE1d4 nda3u7xo45aRElc8rGBW2mE0+1EVkQ2tTEx5/uH70+ 3u+3keasrSyP8Ax5GER9FqvTOGrkv8ogdXrPVU0yrS0o83moEoWkWPttpqvTE8ZZ9nLoP2W34OcERQOY RX5XvQBafUElzzfbCliWn5hlhUDk0r34PBJrj7elDzlMZGoFW4sj6LlJcnHLLcSciCVrjRSVzCNrsiiy Z2okrUQbUZvy/z5rnrF4/JJFluanIt6u85hGql+iSf vkDk3B7V7WCGj2wclRZSABmqb+k5jewUeWbFrGB9v986vMNqEARRxg5vUx4LM9TmVAH16FvraYBSt7Pz 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/4PjHjw8MwEsUXUjb+WdIsflVcg3bFMhRqdf79dj0cvyY6dhoEawbcyqN8UxJNYa8YAyXsgUVwSlA2 [file] WQCfJ8ApIWEmHvXoYF4UBn8IJhD0KRE8mHNdJn7QFdm0AYrOJhWaNT3JQEv= Procedure Social History Code Duration Value Status Description Data Source(s ) Smoking 04/03/2021 12:00:00 AM EST Former Smoker completed Former Smoker [facility] ([facility]) Smoking 02/25/2021 12:00:00 AM EDT Former Smoker completed Former Smoker [facility] ([facility]) Smoking 02/25/2021 12:00:00 AM EDT Former Smoker completed Former Smoker [facility] ([facility]) Smoking 02/25/2021 12:00:00 AM EDT Former Smoker completed Former Smoker [facility] ([facility]) Smoking 01/24/2021 12:00:00 AM EDT Former Smoker completed Former Smoker [facility]1 ([facility]) Smoking 01/24/2021 12:00:00 AM EDT Former Smoker completed Former Smoker [facility]1 ([facility]) Smoking 01/24/2021 12:00:00 AM EDT Former Smoker completed Former Smoker [facility]1 ([facility]) Smoking 01/21/2021 12:00:00 AM EDT Unknown if ever smoked comp leted Unknown if ever smoked [facility] ([facility]) Smoking 12/06/2020 12:00:00 AM EDT Former Smoker completed Former Smoker eCW1 ([facility]) Smoking 12/06/2020 12:00:00 AM EDT Former Smoker completed Former Smoker eCW1 ([facility]) Smoking 10/10/2020 12:00:00 AM EDT Unknown if ever smoked comp leted Unknown if ever smoked [facility] ([facility]) Smoking 10/04/2020 12:00:00 AM EDT Former Smoker completed Former Smoker eCW1 ([facility]) Smoking 10/04/2020 12:00:00 AM EDT Former Smoker completed Former Smoker eCW1 ([facility]) Smoking 09/12/2020 12:00:00 AM EDT Unknown if ever smoked comp leted Unknown if ever smoked [facility] ([facility]) Smoking 08/28/2020 12:00:00 AM EDT Unknown if ever smoked comp leted Unknown if ever smoked [facility] ([facility]) Smoking 08/07/2020 12:00:00 AM EDT Unknown if ever smoked comp leted Unknown if ever smoked [facility] ([facility]) Smoking 07/23/2020 12:00:00 AM EDT Unknown if ever smoked comp leted Unknown if ever smoked [facility] ([facility]) Alcohol intake 05/25/2020 12:00:00 AM EST Lifetime non-drinker (finding) completed Lifetime non-drinker (finding) [facility] Tobacco use and exposure 05/25/2020 12:00:00 AM EST Never used co mpleted Never used [facility] Smoking 05/25/2020 12:00:00 AM EST Former smoker completed Former smoker [facility] Vital Signs ID Date Data Source UNK Name Value Range Interpretation Code Description Data Source(s) Body weight 132.4 [lb_av] 132.4 [lb_av] eCW1 ([facility]) Body height [in_i] eCW1 ([facility]) Body mass index (BMI) [Ratio] 20.13 kg/m2 20.13 kg/m2 eCW1 ([facility]) Heart rate 99 /min 99 /min eCW1 ([facility]) Respiratory rate 18 /min 18 /min eCW1 ([facility]) Body temperature 99.2 [degF] 99.2 [degF] eCW1 ( [facility]) Systolic blood pressure 110 mm[Hg] 110 mm[Hg] e CW1 ([facility]) Diastolic blood pressure 70 mm[Hg] 70 mm[Hg] eCW1 ([facility]) Body weight 135 [lb_av] 135 [lb_av] eCW1 ([facility]) Body weight 61.24 kg 61.24 kg eCW1 ([facility]) Body height [in_i] eCW1 ([facility]) Body mass index (BMI) [Ratio] 20.52 kg/m2 20.52 kg/m2 eCW1 ([facility]) Heart rate 91 /min 91 /min eCW1 ([facility]) Respiratory rate 18 /min 18 /min eCW1 ([facility]) Body temperature 97.4 [degF] 97.4 [degF] eCW1 ( [facility]) Systolic blood pressure 106 mm[Hg] 106 mm[Hg] e CW1 ([facility]) Diastolic blood pressure 66 mm[Hg] 66 mm[Hg] eCW1 ([facility]) Body weight 143 [lb_av] 143 [lb_av] eCW1 ([facility]) Heart rate 90 /min 90 /min eCW1 ([facility]) Body height [in_i] eCW1 ([facility]) Respiratory rate 18 /min 18 /min eCW1 ([facility]) Body temperature 97.2 [degF] 97.2 [degF] eCW1 ( [facility]) Systolic blood pressure 102 mm[Hg] 102 mm[Hg] e CW1 ([facility]) Diastolic blood pressure 62 mm[Hg] 62 mm[Hg] eCW1 ([facility]) Body mass index (BMI) [Ratio] 21.74 kg/m2 21.74 kg/m2 eCW1 ([facility]) Body weight 135.8 [lb_av] 135.8 [lb_av] eCW1 ([facility]) Body height [in_i] eCW1 ([facility]) Body mass index (BMI) [Ratio] 20.65 kg/m2 20.65 kg/m2 eCW1 ([facility]) Heart rate 120 /min 120 /min eCW1 ([facility]) Respiratory rate 18 /min 18 /min eCW1 ([facility]) Body temperature 98.2 [degF] 98.2 [degF] eCW1 ( [facility]) Systolic blood pressure 120 mm[Hg] 120 mm[Hg] e CW1 ([facility]) Diastolic blood pressure 82 mm[Hg] 82 mm[Hg] eCW1 ([facility]) ID Date Data Source [id number] 02/26/2020 07:30:26 PM EDT [facility] Name Value Range Interpretation Code Description Data Source(s) WEIGHT RECORDED 135 lb 135 lb [facility] Patient Treatment Plan of Care Planned Activity Planned Date Details Description Data Source (s) Baclofen 10 MG Oral Tablet 01/24/2021 12:00:00 AM EDT eCW1 ([facility]) duloxetine 30 MG Delayed Release Oral Capsule 01/24/2021 12:00:00 A M EDT eCW1 ([facility]) duloxetine 30 MG Delayed Release Oral Capsule 01/24/2021 12:00:00 A M EDT eCW1 ([facility]) Baclofen 10 MG Oral Tablet 01/24/2021 12:00:00 AM EDT eCW1 ([facility]) duloxetine 30 MG Delayed Release Oral Capsule 01/24/2021 12:00:00 A M EDT eCW1 ([facility]) Baclofen 10 MG Oral Tablet 01/24/2021 12:00:00 AM EDT eCW1 ([facility]) Baclofen 10 MG Oral Tablet 01/24/2021 12:00:00 AM EDT eCW1 ([facility]) duloxetine 30 MG Delayed Release Oral Capsule 01/24/2021 12:00:00 A M EDT eCW1 ([facility]) Baclofen 10 MG Oral Tablet 01/24/2021 12:00:00 AM EDT eCW1 ([facility]) duloxetine 30 MG Delayed Release Oral Capsule 01/24/2021 12:00:00 A M EDT eCW1 ([facility]) Baclofen 10 MG Oral Tablet 01/24/2021 12:00:00 AM EDT eCW1 ([facility]) duloxetine 30 MG Delayed Release Oral Capsule 01/24/2021 12:00:00 A M EDT eCW1 ([facility]) 200 ACTUAT Albuterol 0.09 MG/ACTUAT Metered Dose Inhal er [Ventolin] 10/05/2020 12:00:00 AM EDT eCW1 ([facility]) 200 ACTUAT Albuterol 0.09 MG/ACTUAT Metered Dose Inhal er [Ventolin] 10/05/2020 12:00:00 AM EDT eCW1 ([facility]) Cyclobenzaprine hydrochloride 5 MG Oral Tablet 10/04/2020 12:00:00 AM EDT eCW1 ([facility]) Cyclobenzaprine hydrochloride 5 MG Oral Tablet 10/04/2020 12:00:00 AM EDT eCW1 ([facility])
== END 2021-04-20 22:00 | disposition home or self-care (01) ==
LOC: M ED 17:13
DX: R05.9 Cough, unspecified (principal); G71.00 Muscular dystrophy, unspecified; K21.9 Gastro-esophageal reflux disease without esophagitis; Q87.5 Other congenital malformation syndromes with other skeletal changes; K64.9 Unspecified hemorrhoids; F17.200 Nicotine dependence, unspecified, uncomplicated; Z79.899 Other long term (current) drug therapy; Z88.0 Allergy status to penicillin; Z91.040 Latex allergy status
CPT/HCPCS: 71046; 99283; U0003

== ENCOUNTER → 2021-10-21 | Outpatient (CLI) | payer MEDICARE, MEDICAID ==
[~2021-10-21] MED LIST changes: +TESS100C PO; +VITA500C24 PO
[2021-10-21 12:33] LABS: BASO % 0.3 % (0.0-1.0); EOS # 0.1 10^3/uL (0.0-0.5); EOS % 1.4 % (0.0-3.0); HEMATOCRIT 40.7 % (36.0-47.0); HEMOGLOBIN 13.8 g/dl (12.0-15.5); LYMPH # 1.9 10^3/uL (1.5-5.0); LYMPH % 27.6 % (24.0-44.0); MEAN CORPUSCULAR HEMOGLOBIN 32.2 pg (27.0-33.0); MEAN CORPUSCULAR HGB CONC 33.9 g/dl (32.0-36.5); MEAN CORPUSCULAR VOLUME 95.1 fl (80.0-96.0); MONO # 0.5 10^3/uL (0.0-0.8); MONO % 7.2 % (2.0-8.0); NEUTROPHILS # 4.4 10^3/uL (1.5-8.5); NEUTROPHILS % 63.2 % (36.0-66.0); PLATELET COUNT, AUTOMATED 278 10^3/uL (150-450); RED BLOOD COUNT 4.28 10^6/uL (4.00-5.40)
[2021-10-21 13:14] LABS: ALBUMIN 3.8 GM/DL (3.2-5.2); ALT/SGPT 12 U/L (12-78); BILIRUBIN,TOTAL 0.5 MG/DL (0.2-1.0); BLOOD UREA NITROGEN 14 MG/DL (7-18); CARBON DIOXIDE LEVEL 29 MEQ/L (21-32); CHLORIDE LEVEL 109 MEQ/L (98-107); CHOLESTEROL LEVEL 149 MG/DL (<200); CHOLESTEROL RISK RATIO 2.811 (<5); FREE T4 0.88 NG/DL (0.76-1.46); GLOMERULAR FILTRATION RATE > 60.0 (>51); GLUCOSE, FASTING 107 MG/DL (70-100); HDL CHOLESTEROL 53 MG/DL (>40); LDL CHOLESTEROL 83 MG/DL (<100); NON-HDL-C 96 MG/DL; POTASSIUM SERUM 4.1 MEQ/L (3.5-5.1); SODIUM LEVEL 145 MEQ/L (136-145); THYROID STIMULATING HORMONE 0.882 uIU/ML (0.358-3.740); TOTAL PROTEIN 6.8 GM/DL (6.4-8.2); TRIGLYCERIDES LEVEL 64 MG/DL (<150)
[2021-10-21 13:16] LABS: TOTAL 25(OH) VITAMIN D 24.8 NG/ML (30.0-100.0)
[2021-10-21 15:33] LABS: HEMOGLOBIN A1c 5.2 %
== END ==
LOC: M LAB 12:03
PROVIDERS: ATTEND Physician Assistant
DX: K21.9 Gastro-esophageal reflux disease without esophagitis (principal); Z13.220 Encounter for screening for lipoid disorders; Z13.1 Encounter for screening for diabetes mellitus; G89.29 Other chronic pain; Z79.899 Other long term (current) drug therapy

== ENCOUNTER → 2021-10-30 | Outpatient (CLI) | payer MEDICARE, MEDICAID | LOC: M CARPUL 11:08 | PROVIDERS: ATTEND Physician Assistant | DX: J45.20 Mild intermittent asthma, uncomplicated (principal) ==

== ENCOUNTER → 2021-12-30 | Outpatient (CLI) | payer MEDICARE, MEDICAID | LOC: M PAIN 13:30 | PROVIDERS: ATTEND Nurse Practitioner Family | DX: M54.2 Cervicalgia (principal); M54.50 Low back pain, unspecified; M54.6 Pain in thoracic spine; M41.9 Scoliosis, unspecified; K21.9 Gastro-esophageal reflux disease without esophagitis; G89.29 Other chronic pain; E55.9 Vitamin D deficiency, unspecified; R26.81 Unsteadiness on feet; G43.909 Migraine, unspecified, not intractable, without status migrainosus; J30.1 Allergic rhinitis due to pollen; F79 Unspecified intellectual disabilities; F17.210 Nicotine dependence, cigarettes, uncomplicated; Z79.899 Other long term (current) drug therapy; Z88.0 Allergy status to penicillin; Z91.041 Radiographic dye allergy status ==

== ENCOUNTER → 2022-07-11 | Outpatient (CLI) | payer MEDICARE, MEDICAID ==
[2022-07-11 10:40] LABS: BASO % 0.5 % (0.0-1.0); EOS # 0.1 10^3/uL (0.0-0.5); EOS % 1.2 % (0.0-3.0); HEMATOCRIT 37.8 % (36.0-47.0); HEMOGLOBIN 12.2 g/dl (12.0-15.5); LYMPH # 1.9 10^3/uL (1.5-5.0); MEAN CORPUSCULAR HEMOGLOBIN 31.4 pg (27.0-33.0); MEAN CORPUSCULAR HGB CONC 32.3 g/dl (32.0-36.5); MEAN CORPUSCULAR VOLUME 97.2 fl (80.0-96.0); MONO # 0.5 10^3/uL (0.0-0.8); NEUTROPHILS # 3.1 10^3/uL (1.5-8.5); NEUTROPHILS % 55.9 % (36.0-66.0); PLATELET COUNT, AUTOMATED 268 10^3/uL (150-450); RED BLOOD COUNT 3.89 10^6/uL (4.00-5.40); WHITE BLOOD COUNT 5.6 10^3/uL (4.0-10.0)
[2022-07-11 11:06] LABS: THYROID STIMULATING HORMONE 0.694 uIU/ML (0.55-4.78)
[2022-07-11 11:08] LABS: TOTAL 25(OH) VITAMIN D 72.9 NG/ML (20.0-100.0)
[2022-07-11 11:29] LABS: ALBUMIN 3.9 G/DL (3.2-5.2); ALKALINE PHOSPHATASE 64 U/L (46-116); ALT/SGPT 12 U/L (7.0-40); AST/SGOT 11 U/L (<34); BILIRUBIN,TOTAL 0.8 MG/DL (0.3-1.2); BLOOD UREA NITROGEN 13 MG/DL (9-23); CALCIUM LEVEL 9.3 MG/DL (8.5-10.1); CARBON DIOXIDE LEVEL 34 MMOL/L (20-31); CHLORIDE LEVEL 105 MMOL/L (98-107); CHOLESTEROL LEVEL 150 MG/DL (<200); CHOLESTEROL RISK RATIO 2.77 (<5); CREATININE FOR GFR 0.72 MG/DL (0.55-1.30); GLOMERULAR FILTRATION RATE > 60.0 (>51); GLUCOSE, FASTING 91 MG/DL (60-100); LDL CHOLESTEROL 88.6 MG/DL (<100); NON-HDL-C 96 MG/DL; POTASSIUM SERUM 4.3 MMOL/L (3.5-5.1); SODIUM LEVEL 142 MMOL/L (136-145); TOTAL PROTEIN 6.3 G/DL (5.7-8.2); TRIGLYCERIDES LEVEL 37 MG/DL (<150)
== END ==
LOC: M PLALAB 09:02
PROVIDERS: ATTEND Physician Assistant
DX: G12.29 Other motor neuron disease (principal); E55.9 Vitamin D deficiency, unspecified; Z79.899 Other long term (current) drug therapy

== ENCOUNTER 2022-10-29 00:52 | Emergency (ER) | payer MEDICARE, MEDICAID ==
[~2022-10-29] VITALS: Ht 167.6 cm; Wt 47.6 kg
[2022-10-29] MEDS ORDERED: TUMS750C22 PO (00:58)
[2022-10-29] MEDS ORDERED: SIMETHICONE 80MG CHEW TAB PO STA (05:26)
[2022-10-29 06:37] VITALS: TEMP 97
[2022-10-29 06:38] VITALS: O2SAT 94
[2022-10-29 06:45] VITALS: BP 121/74
[2022-10-29] MEDS ORDERED: FAMO20TA PO (06:53)
== END 2022-10-29 07:08 | disposition home or self-care (01) ==
LOC: M ED 00:52
DX: R07.89 Other chest pain (principal); K30 Functional dyspepsia; K21.9 Gastro-esophageal reflux disease without esophagitis; G71.00 Muscular dystrophy, unspecified; Z88.0 Allergy status to penicillin; Z91.040 Latex allergy status; Z79.899 Other long term (current) drug therapy

== ENCOUNTER 2023-02-18 09:14 | Emergency (ER) | payer MEDICARE, MEDICAID ==
[~2023-02-18] VITALS: Ht 175.3 cm; Wt 48.9 kg
[~2023-02-18 09:14] MED LIST changes: +FAMO20TA PO; -HM S0.65 NARES; +SALI0.6531 NARES; +TUMS750C22 PO
[2023-02-18] MEDS ORDERED: METOCLOPRAMIDE INJ 10MG/2ML VIAL IV ONE (10:00)
[2023-02-18] MEDS ORDERED: NS 1,000 ML IV ONE (10:00)
[2023-02-18 10:19] LABS: BASO % 0.5 % (0.0-1.0); EOS % 0.5 % (0.0-3.0); HEMATOCRIT 42.6 % (36.0-47.0); HEMOGLOBIN 14.3 g/dl (12.0-15.5); LYMPH # 1.3 10^3/uL (1.5-5.0); LYMPH % 19.9 % (24.0-44.0); MEAN CORPUSCULAR HEMOGLOBIN 32.1 pg (27.0-33.0); MEAN CORPUSCULAR HGB CONC 33.6 g/dl (32.0-36.5); MEAN CORPUSCULAR VOLUME 95.5 fl (80.0-96.0); MONO # 0.4 10^3/uL (0.0-0.8); MONO % 6.6 % (2.0-8.0); NEUTROPHILS # 4.8 10^3/uL (1.5-8.5); NEUTROPHILS % 72.3 % (36.0-66.0); PLATELET COUNT, AUTOMATED 286 10^3/uL (150-450); RED BLOOD COUNT 4.46 10^6/uL (4.00-5.40); WHITE BLOOD COUNT 6.6 10^3/uL (4.0-10.0)
[2023-02-18 10:31] LABS: INR 1.1; PROTHROMBIN TIME 13.9 SECONDS (12.5-14.5)
[2023-02-18 10:32] LABS: PARTIAL THROMBOPLASTIN TIME 28.7 SECONDS (24.8-34.2)
[2023-02-18 10:45] LABS: ALKALINE PHOSPHATASE 61 U/L (46-116); ALT/SGPT 18 U/L (7.0-40); AST/SGOT 11 U/L (<34); BILIRUBIN,TOTAL 0.9 MG/DL (0.3-1.2); BLOOD UREA NITROGEN 11 MG/DL (9-23); CALCIUM LEVEL 9.3 MG/DL (8.5-10.1); CARBON DIOXIDE LEVEL 28 MMOL/L (20-31); CHLORIDE LEVEL 110 MMOL/L (98-107); CK-MB VALUE MASS < 1.0 NG/ML (<3.6); CPK CREATINE PHOSPHOKINASE 40 U/L (34-145); CREATININE FOR GFR 0.61 MG/DL (0.55-1.30); GLOMERULAR FILTRATION RATE > 60.0 (>51); GLUCOSE, FASTING 113 MG/DL (60-100); POTASSIUM SERUM 3.8 MMOL/L (3.5-5.1); SODIUM LEVEL 143 MMOL/L (136-145); TOTAL PROTEIN 6.6 G/DL (5.7-8.2)
[2023-02-18] MEDS ORDERED: REGL10TA6 PO (12:17)
[2023-02-18 12:21] VITALS: BP 125/78; TEMP 98.1; O2SAT 98
== END 2023-02-18 12:45 | disposition home or self-care (01) ==
LOC: M ED 09:14
DX: R11.2 Nausea with vomiting, unspecified (principal); R19.7 Diarrhea, unspecified; K21.9 Gastro-esophageal reflux disease without esophagitis; Z79.899 Other long term (current) drug therapy; Z88.0 Allergy status to penicillin; Z91.040 Latex allergy status
CPT/HCPCS: 71045; 80053; 82550; 82553; 84484; 85025; 85610; 85730; 93005; 93041; 96361; 96374; 99285; J2765

== ENCOUNTER → 2023-03-23 | Outpatient (CLI) | payer MEDICARE, MEDICAID ==
[2023-03-23 13:52] LABS: BASO % 0.5 % (0.0-1.0); EOS % 0.5 % (0.0-3.0); HEMATOCRIT 43.4 % (36.0-47.0); HEMOGLOBIN 14.4 g/dl (12.0-15.5); LYMPH # 1.7 10^3/uL (1.5-5.0); LYMPH % 25.8 % (24.0-44.0); MEAN CORPUSCULAR HEMOGLOBIN 32.4 pg (27.0-33.0); MEAN CORPUSCULAR HGB CONC 33.2 g/dl (32.0-36.5); MEAN CORPUSCULAR VOLUME 97.5 fl (80.0-96.0); MONO # 0.5 10^3/uL (0.0-0.8); MONO % 7.9 % (2.0-8.0); NEUTROPHILS # 4.3 10^3/uL (1.5-8.5); NEUTROPHILS % 65.1 % (36.0-66.0); PLATELET COUNT, AUTOMATED 334 10^3/uL (150-450); RED BLOOD COUNT 4.45 10^6/uL (4.00-5.40); WHITE BLOOD COUNT 6.6 10^3/uL (4.0-10.0)
[2023-03-23 13:56] LABS: C REACTIVE PROTEIN QUANTITATIV < 0.40 MG/DL (<1.0)
[2023-03-23 13:58] LABS: ALKALINE PHOSPHATASE 66 U/L (46-116); ALT/SGPT 19 U/L (7.0-40); AST/SGOT 14 U/L (<34); BILIRUBIN,TOTAL 0.4 MG/DL (0.3-1.2); BLOOD UREA NITROGEN 19 MG/DL (9-23); CALCIUM LEVEL 9.5 MG/DL (8.5-10.1); CARBON DIOXIDE LEVEL 32 MMOL/L (20-31); CHLORIDE LEVEL 104 MMOL/L (98-107); CREATININE FOR GFR 0.57 MG/DL (0.55-1.30); GLOMERULAR FILTRATION RATE > 60.0 (>51); GLUCOSE, FASTING 91 MG/DL (60-100); POTASSIUM SERUM 4.1 MMOL/L (3.5-5.1); SODIUM LEVEL 141 MMOL/L (136-145); TOTAL PROTEIN 6.6 G/DL (5.7-8.2)
[2023-03-23 13:59] LABS: FREE T4 1.15 NG/DL (0.89-1.76); TOTAL 25(OH) VITAMIN D 48.7 NG/ML (20.0-100.0); VITAMIN B12 LEVEL 342 PG/ML (211-911)
[2023-03-23 14:00] LABS: FERRITIN 64.3 NG/ML (7.3-270.7)
[2023-03-23 14:03] LABS: HEMOGLOBIN A1c 4.9 % (4.0-6.0)
[2023-03-23 14:07] LABS: ERYTHROCYTE SEDIMENTATION RATE 7 mm/hr (0-30); FOLATE 14.2 NG/ML (>5.4)
== END ==
LOC: M PLALAB 09:20
PROVIDERS: ATTEND Physician Assistant
DX: K31.89 Other diseases of stomach and duodenum (principal); D50.9 Iron deficiency anemia, unspecified; E07.9 Disorder of thyroid, unspecified

== ENCOUNTER → 2023-06-11 | Outpatient (CLI) | payer MEDICARE, MEDICAID | LOC: M PAIN 15:30 | PROVIDERS: ATTEND Nurse Practitioner Family | DX: M54.2 Cervicalgia (principal); M54.50 Low back pain, unspecified; M54.6 Pain in thoracic spine; G89.29 Other chronic pain; F17.210 Nicotine dependence, cigarettes, uncomplicated; Z88.0 Allergy status to penicillin; Z91.040 Latex allergy status; Z79.899 Other long term (current) drug therapy ==

== ENCOUNTER 2023-11-24 14:09 | Emergency (ER) | payer MEDICARE, MEDICAID ==
[~2023-11-24] VITALS: Ht 172.7 cm; Wt 52.3 kg
[2023-11-24] MEDS ORDERED: D 50CAP2 (14:19)
[2023-11-24] MEDS ORDERED: ALBU8.5H (14:19)
[2023-11-24] MEDS: ASPIRIN 81MG CHEW TABLET PO ONE (15:38)
[2023-11-24 15:48] LABS: BASO % 0.3 % (0.0-1.0); EOS # 0.1 10^3/uL (0.0-0.5); EOS % 0.8 % (0.0-3.0); HEMATOCRIT 42.4 % (36.0-47.0); LYMPH # 1.4 10^3/uL (1.5-5.0); LYMPH % 19.7 % (24.0-44.0); MEAN CORPUSCULAR HEMOGLOBIN 32.1 pg (27.0-33.0); MEAN CORPUSCULAR VOLUME 97.2 fl (80.0-96.0); MONO # 0.8 10^3/uL (0.0-0.8); MONO % 11.2 % (2.0-8.0); NEUTROPHILS # 4.8 10^3/uL (1.5-8.5); NEUTROPHILS % 67.9 % (36.0-66.0); PLATELET COUNT, AUTOMATED 277 10^3/uL (150-450); RED BLOOD COUNT 4.36 10^6/uL (4.00-5.40); WHITE BLOOD COUNT 7.1 10^3/uL (4.0-10.0)
[2023-11-24 16:17] LABS: LIPASE 35 U/L (12-53)
[2023-11-24 16:19] LABS: ALKALINE PHOSPHATASE 68 U/L (46-116); ALT/SGPT 16 U/L (7.0-40); AST/SGOT 9 U/L (<34); BILIRUBIN,DIRECT 0.2 MG/DL (<0.4); BILIRUBIN,TOTAL 0.6 MG/DL (0.3-1.2); BLOOD UREA NITROGEN 15 MG/DL (9-23); CALCIUM LEVEL 9.3 MG/DL (8.5-10.1); CARBON DIOXIDE LEVEL 31 MMOL/L (20-31); CHLORIDE LEVEL 106 MMOL/L (98-107); CK-MB VALUE MASS < 1.0 NG/ML (<3.6); CPK CREATINE PHOSPHOKINASE 51 U/L (34-145); CREATININE FOR GFR 0.68 MG/DL (0.55-1.30); GLOMERULAR FILTRATION RATE > 60.0 (>51); GLUCOSE, FASTING 108 MG/DL (60-100); MB/CK RELATIVE INDEX 1.96 (< OR =4); POTASSIUM SERUM 4.1 MMOL/L (3.5-5.1); SODIUM LEVEL 140 MMOL/L (136-145); TOTAL PROTEIN 6.4 G/DL (5.7-8.2)
[2023-11-24 16:21] LABS: FREE T4 1.04 NG/DL (0.89-1.76)
[2023-11-24 16:22] LABS: INR 1.05; PARTIAL THROMBOPLASTIN TIME 27.7 SECONDS (24.8-34.2); PROTHROMBIN TIME 13.4 SECONDS (12.5-14.5)
[2023-11-24] MEDS ORDERED: ISOVUE-370 76% 100ML VIAL As Ordered ONE (16:33)
[2023-11-24 17:07] LABS: CK-MB VALUE MASS < 1.0 NG/ML (<3.6)
[2023-11-24 17:09] LABS: CPK CREATINE PHOSPHOKINASE 53 U/L (34-145); MB/CK RELATIVE INDEX 1.88 (< OR =4)
[2023-11-24] MEDS: LORazepam 2 MG/ML 1ML VIAL IV STA (17:12)
[2023-11-24 18:41] VITALS: BP 114/75; TEMP 97.6; O2SAT 96
== END 2023-11-24 19:15 | disposition home or self-care (01) ==
LOC: EDBD 14:09 → M ED 14:09
DX: R07.9 Chest pain, unspecified (principal); G71.00 Muscular dystrophy, unspecified; K21.9 Gastro-esophageal reflux disease without esophagitis; G43.909 Migraine, unspecified, not intractable, without status migrainosus; F17.210 Nicotine dependence, cigarettes, uncomplicated; Z88.0 Allergy status to penicillin; Z91.040 Latex allergy status; Z79.51 Long term (current) use of inhaled steroids; Z79.899 Other long term (current) drug therapy
CPT/HCPCS: 36415; 71046; 71275; 80048; 80076; 82550; 82553; 83690; 84439; 84443; 84484; 85025; 85610; 85730; 93005; 93041; 94760; 99285; Q9967

== ENCOUNTER → 2024-06-07 | Outpatient (CLI) | payer MEDICARE, MEDICAID ==
[~2024-06-07] MED LIST changes: +ALBU8.5H; -CYCL5TAB PO; +CYCL5TAB4 PO; +D 50CAP2
[2024-06-07 14:55] LABS: HEMATOCRIT 43.1 % (36.0-47.0); HEMOGLOBIN 14.5 g/dl (12.0-15.5); MEAN CORPUSCULAR HEMOGLOBIN 32.2 pg (27.0-33.0); MEAN CORPUSCULAR HGB CONC 33.6 g/dl (32.0-36.5); MEAN CORPUSCULAR VOLUME 95.6 fl (80.0-96.0); PLATELET COUNT, AUTOMATED 338 10^3/uL (150-450); RED BLOOD COUNT 4.51 10^6/uL (4.00-5.40); WHITE BLOOD COUNT 7.6 10^3/uL (4.0-10.0)
[2024-06-07 15:05] LABS: ALBUMIN 3.9 G/DL (3.2-5.2); ALKALINE PHOSPHATASE 79 U/L (35-104); ALT/SGPT 17 U/L (7.0-40); AST/SGOT 13 U/L (<34); BILIRUBIN,TOTAL 0.3 MG/DL (0.3-1.2); BLOOD UREA NITROGEN 24 MG/DL (9-23); CALCIUM LEVEL 9.7 MG/DL (8.5-10.1); CARBON DIOXIDE LEVEL 31 MMOL/L (20-31); CHLORIDE LEVEL 102 MMOL/L (98-107); CREATININE FOR GFR 0.65 MG/DL (0.55-1.30); GLOMERULAR FILTRATION RATE > 60.0 (>51); GLUCOSE, FASTING 106 MG/DL (60-100); IRON (FE) 112 UG/DL (50-170); PERCENT SATURATION 34.3 % (13.2-45.0); POTASSIUM SERUM 4.2 MMOL/L (3.5-5.1); SODIUM LEVEL 143 MMOL/L (136-145); TOTAL IRON BINDING CAPACITY 327 UG/DL (250-425); TOTAL PROTEIN 7.1 G/DL (5.7-8.2)
[2024-06-07 15:06] LABS: FOLATE 10.8 NG/ML (>5.4); TOTAL 25(OH) VITAMIN D 90.5 NG/ML (20.0-100.0)
[2024-06-07 15:07] LABS: FERRITIN 71.9 NG/ML (7.3-270.7); FREE T4 1.15 NG/DL (0.89-1.76)
[2024-06-07 15:08] LABS: VITAMIN B12 LEVEL 469 PG/ML (211-911)
== END ==
LOC: M LAB 13:40
PROVIDERS: ATTEND Nurse Practitioner Family
DX: G12.29 Other motor neuron disease (principal); E55.9 Vitamin D deficiency, unspecified; R06.09 Other forms of dyspnea

== ENCOUNTER → 2024-06-22 | Outpatient (CLI) | payer MEDICARE, MEDICAID | LOC: M CARPUL 12:40 | PROVIDERS: ATTEND Nurse Practitioner Family | DX: R05.3 Chronic cough (principal) ==

== ENCOUNTER 2024-07-30 13:06 | Emergency (ER) | payer MEDICARE, MEDICAID ==
[~2024-07-30] VITALS: Ht 172.7 cm; Wt 53.9 kg
[2024-07-30 13:32] VITALS: TEMP 99.1
[2024-07-30 13:40] LABS: BASO % 0.6 % (0.0-1.0); EOS # 0.1 10^3/uL (0.0-0.5); EOS % 0.7 % (0.0-3.0); HEMATOCRIT 42.9 % (36.0-47.0); HEMOGLOBIN 14.6 g/dl (12.0-15.5); LYMPH # 1.5 10^3/uL (1.5-5.0); LYMPH % 21.1 % (24.0-44.0); MEAN CORPUSCULAR HEMOGLOBIN 32.3 pg (27.0-33.0); MEAN CORPUSCULAR VOLUME 94.9 fl (80.0-96.0); MONO # 1.1 10^3/uL (0.0-0.8); MONO % 15.8 % (2.0-8.0); NEUTROPHILS # 4.4 10^3/uL (1.5-8.5); NEUTROPHILS % 61.5 % (36.0-66.0); PLATELET COUNT, AUTOMATED 271 10^3/uL (150-450); RED BLOOD COUNT 4.52 10^6/uL (4.00-5.40); WHITE BLOOD COUNT 7.2 10^3/uL (4.0-10.0)
[2024-07-30] MEDS: NS (Normal Saline) 0.9% 1,000 ML IV ONE (14:05)
[2024-07-30 14:10] LABS: ALBUMIN 4.1 G/DL (3.2-5.2); ALKALINE PHOSPHATASE 77 U/L (35-104); ALT/SGPT 19 U/L (7.0-40); AST/SGOT 17 U/L (<34); BILIRUBIN,DIRECT 0.2 MG/DL (<0.4); BILIRUBIN,TOTAL 0.8 MG/DL (0.3-1.2); BLOOD UREA NITROGEN 15 MG/DL (9-23); CALCIUM LEVEL 9.7 MG/DL (8.5-10.1); CARBON DIOXIDE LEVEL 25 MMOL/L (20-31); CHLORIDE LEVEL 105 MMOL/L (98-107); CREATININE FOR GFR 0.67 MG/DL (0.55-1.30); GLOMERULAR FILTRATION RATE > 60.0 (>51); GLUCOSE, FASTING 104 MG/DL (60-100); POTASSIUM SERUM 3.9 MMOL/L (3.5-5.1); SODIUM LEVEL 142 MMOL/L (136-145); TOTAL PROTEIN 7.3 G/DL (5.7-8.2)
[2024-07-30 14:12] LABS: THYROID STIMULATING HORMONE 0.992 uIU/ML (0.55-4.78); THYROXINE (T4) 9.3 UG/DL (4.5-10.9)
[2024-07-30] MEDS ORDERED: ISOVUE-370 76% 100ML VIAL As Ordered ONE (14:47)
[2024-07-30 14:48] LABS: VENOUS BASE EXCESS -3.2 (-2.0-2.0); VENOUS HCO3 20.8 MMOL/L (23.0-27.0); VENOUS O2 SATURATION 94.4 % (60.0-80.0); VENOUS PARTIAL PRESSURE CO2 34.5 mmHg (38.0-50.0); VENOUS PARTIAL PRESSURE O2 71.1 mmHg (30.0-50.0); VENOUS PH 7.398 UNITS (7.330-7.430); VENOUS STANDARD HCO3 21.7 MMOL/L; VENOUS TOTAL CO2 21.9 MMOL/L (24.0-28.0)
[2024-07-30] MEDS: IPRATROPIUM 0.5MG/ALBUTEROL 2.5MG INH SOL UD 3ML (DUONEB) NEB ONE (16:28)
[2024-07-30] MEDS ORDERED: ALBU2.5V10 NEB (18:07)
[2024-07-30] MEDS ORDERED: PRED20TA PO (18:07)
[2024-07-30] MEDS ORDERED: NEBU1EAC78 MC (18:08)
[2024-07-30] MEDS: methylPREDNISolone 125MG 2ML VIAL IV ONE (18:08)
[2024-07-30 18:15] VITALS: BP 116/62; O2SAT 94
[2024-07-30] MEDS: IPRATROPIUM 0.5MG/ALBUTEROL 2.5MG INH SOL UD 3ML (DUONEB) NEB PRN (18:16)
[2024-07-30 18:20] VITALS: O2SAT 95
== END 2024-07-30 19:27 | disposition home or self-care (01) ==
LOC: M ED 13:06
DX: J06.9 Acute upper respiratory infection, unspecified (principal); J45.901 Unspecified asthma with (acute) exacerbation; K21.9 Gastro-esophageal reflux disease without esophagitis; F17.210 Nicotine dependence, cigarettes, uncomplicated; Z88.0 Allergy status to penicillin; Z91.040 Latex allergy status; Z79.51 Long term (current) use of inhaled steroids; Z79.52 Long term (current) use of systemic steroids; Z79.899 Other long term (current) drug therapy
CPT/HCPCS: 71045; 71275; 80048; 80076; 82803; 83605; 84436; 84443; 85025; 87040; 87486; 87581; 87633; 87798; 93005; 93041; 94640; 94760; 96374; 99285; J2919; Q9967

== ENCOUNTER → 2024-08-03 | Outpatient (REF) | payer MEDICARE, MEDICAID ==
[~2024-08-03] MED LIST changes: +ALBU2.5V10 NEB; +NEBU1EAC78 MC
== END ==
LOC: M SFHCPLAZ 12:27
PROVIDERS: ATTEND Nurse Practitioner Family
DX: R09.3 Abnormal sputum (principal)